=== PATIENT | female | born 1975 ===

== ENCOUNTER 2022-04-16 15:51 | Outpatient (REF) | payer OTHER, MEDICAID, SELFPAY ==
--- NOTE | ~2022-04-16 | XR_ITS ---
EXAMINATION: XR HAND, RIGHT CLINICAL INFORMATION: Pain status-post fall 3 weeks prior. COMPARISON: None TECHNIQUE: PA, lateral, and oblique views of the right hand. FINDINGS: The bones and soft tissues are normal. No fracture. Alignment is anatomic. Joint spaces are maintained. A minimal periarticular calcifications seen adjacent to the interphalangeal joint of the thumb. No erosions or soft tissue calcifications. XR/XR hand RT min 3V IMPRESSION: Unremarkable right hand.
== END 2022-04-16 15:52 | disposition home or self-care (01) ==
LOC: HO.XRAY 15:51
PROVIDERS: PCP Family Medicine; Visit Provider Family Medicine
DX: M79.641 Pain in right hand (principal)
CPT/HCPCS: 73130

== ENCOUNTER 2022-10-28 09:46 | Outpatient (AMB) | payer OTHER, MEDICAID, SELFPAY ==
--- NOTE | 2022-10-28 09:57 | A.OFFPC_ITS ---
Vital Signs 10/28/22 09:59 Height 5 ft 5.5 in Weight 157 lb 4 oz BMI 25.8 BP 110/74 Blood Pressure Location Rt brachial Position Sitting Respiration 12 Pulse 66 Pulse Source Pulse Oximeter Temp 97.9 F Temp Source Temporal Artery Scan Pulse Oximetry (%) 99 Oxygen Delivery Method Room Air Intake Visit Reasons: f/u anxiety/depression Intake Note: Patient states that she need refills on her inhalers, Clonopin, Bupropion, Tizanidine, Pantoprazole, Nasal [place]. Patient did not bring in Pill bottles for Pill count. Patient states she will be able to leave a urine. Python Developer Required: No Accompanied by: Self / Same As Patient Allergies escitalopram Allergy (Unknown, Verified 10/28/22 10:45) Unknown latex [LATEX] Allergy (Unknown, Verified 10/28/22 10:45) RASH, THROAT SWELLING prednisone [PREDNISONE] Allergy (Unknown, Verified 10/28/22 10:45) RASH, THROAT SWELLING latex Allergy (Unknown, Uncoded 10/28/22 10:45) rash Latex Gloves Allergy (Unknown, Uncoded 10/28/22 10:45) Unknown Paroxetine HCl Allergy (Unknown, Uncoded 10/28/22 10:45) unknown prednisone Allergy (Unknown, Uncoded 10/28/22 10:45) rash Medication List - Last Reconciled 10/28/22 by Rebeca Brooks CNP albuterol sulfate 90 mcg/actuation (Ventolin HFA) 2 puffs inhalation Q4-6H PRN albuterol sulfate 90 mcg/actuation 2 inhalations inhalation Q4-6H PRN 1 month aripiprazole 4 mg PO BEDTIME bupropion HCl 75 mg PO BID 30 days cetirizine 10 mg PO DAILY PRN 90 days clonazepam 1 mg PO BID PRN 15 days fluticasone propionate 50 mcg/actuation 1 spray intranasal DAILY fluticasone propionate 220 mcg/actuation (Flovent HFA) 1 puff inhalation BID 30 days ibuprofen 800 mg PO TID PRN levocetirizine (Xyzal) 5 mg PO DAILY 30 days melatonin 5 mg PO BEDTIME PRN pantoprazole 40 mg PO DAILY tizanidine 4 mg PO TID PRN Tobacco use date assessed: 04/01/22 Dental Screening Dental Screen Date: 10/28/22 Did you have a dental visit in the last 12 months?: No Did you have a dental problem in the last 6 months where you did not have access to dental care?: No Was dental information given to patient?: Yes HPI HPI Comments History of Present Illness Details 47-year-old female presents for anxiety and depression follow-up. She is on Abilify, clonazepam, and bupropion. She admits to taking her medications as prescribed. She is due for clonazepam pill count and urine drug screen. However, she notes she did not bring clonazepam tablets for his appointment. Patient abruptly left the room after she was asked to bring clonazepam pill container for pill count today or tomorrow per his PCP. She notes, I will just leave. There is nothing you can do for me. She notes to inform her PCP that she will transferred to the [place] practice. [facility], [facility] Medical History (Updated 10/28/22 @ 10:14 by Martha Valencia MA) No pertinent past medical history Surgical History (Updated 10/28/22 @ 10:14 by Martha Valencia MA) No pertinent past surgical history Family History Father Substance abuse Cancer Other Mental health disorder Social History Housing: Apartment Patient Tobacco Use Status: Current someday Tobacco user Cigarettes Per Day: 3 e-Cigarette/Vaping Use: Never Used service: No Current occupational status: disabled Current occupational exposures/hazards: No Cognitive needs: No Hearing needs: No Vision needs: Yes Questionnaire PHQ-9 Over the last 2 weeks, how often have you been bothered by any of the following problems? 1. Little interest or pleasure in doing things: more than half the days 2. Feeling down, depressed, or hopeless: nearly every day 3. Trouble falling or staying asleep, or sleeping too much: nearly every day 4. Feeling tired or having little energy: more than half the days 5. Poor appetite or overeating: more than half the days 6. Feeling bad about yourself - or that you are a failure or have let yourself or your family down: not at all 7. Trouble concentrating on things, such as reading the newspaper or watching television: nearly every day 8. Moving or speaking so slowly that other people could have noticed. Or the opposite - being so fidgety or restless that you have been moving around a lot more than usual: more than half the days 9. Thoughts that you would be better off or of hurting yourself in some way: not at all Total score: 17 Depression Screening Interpretation: Positive Depression Screening Follow-up: Existing condition and In treatment 35822 - PHQ-9 Billing: Yes Source: Developed by Drs. Edwin Montez, Jonatan Her and colleagues, with an educational harley from [employer]. HERRERA-7 AMB Questionnaire HERRERA-7 Date HERRERA - 7 assessed: 10/28/22 Feeling nervous, anxious, or on edge: 3 = Nearly every day Not being able to stop or control worryin = Nearly every day Worrying too much about different things: 3 = Nearly every day Trouble relaxin = Nearly every day Being so restless that it is hard to sit still: 3 = Nearly every day Becoming easily annoyed or irritable: 2 = More than half the days Feeling afraid as if something awful might happen: 2 = More than half the days Total HERRERA-7 score (0-4 normal; 5-9 mild; 10-14 moderate; 15-21 severe): 19 Source: Developed by Drs. Edwin Montez, Sapna Saucedo, Jonatan Aparicio and colleagues, with an educational harley from [employer]. HERRERA-7 Assessment Billing HERRERA-7 Assessment Tool: HERRERA-7 Assessment 65981 Review of Systems Const Details: Declines review of systems Physical exam (Primary Care) Vital Signs: Last Vital Signs Temp 97.9 F 10/28/22 09:59 Pulse 66 10/28/22 09:59 Resp 12 10/28/22 09:59 BP 110/74 10/28/22 09:59 Pulse Ox 99 10/28/22 09:59 Oxygen Delivery Method Room Air 10/28/22 09:59 BMI result Body Mass Index 25.8 Tobacco/Smoking Status: Tobacco use Status Tobacco use date assessed 04/01/22 10/28/22 10:16 Patient Tobacco Use Status Current someday Tobacco 10/28/22 10:16 e-Cigarette/Vaping Use Never Used 10/28/22 10:16 PHQ-9: PHQ-9 Score PHQ-9: Total score 17 10/28/22 10:17 Depression Screening Interpretation: Positive Depression Screening Follow-up: Existing condition and In treatment Const Other: Declines physical exam Assessment and Plan Assessment & Plan (1) Depression with anxiety: Code(s): F41.8 - Other specified anxiety disorders Plan: Patient left without been examined She refused to bring her clonazepam pill container for pill counts Her PCP informed that the patient notes she will transfer care to the [facility] Bupropion, Tizanidine, Pantoprazole, nasal spray refilled Orders: Orders AMB 14 Panel Urine Drug Screen Today Z51.81 - Encounter for therapeutic drug level monitoring Medications: Changed From aripiprazole 4 mg (2 x 2 mg) PO BEDTIME 30 days 60 tabs 0RF To aripiprazole 4 mg PO BEDTIME Refilled bupropion HCl 75 mg PO BID 60 tabs 2RF 30 days fluticasone propionate 50 mcg/actuation 1 spray intranasal DAILY 48 grams 0RF pantoprazole 40 mg PO DAILY 90 tabs 3RF tizanidine 4 mg PO TID PRN 270 tabs 0RF for muscle spasm Coding Level of Care Code Est Pt Level 2 (95833) Diagnoses Depression with anxiety F41.8 Additional Codes HERRERA-7 Assessment Billing - HERRERA-7 Assessment Tool: HERRERA-7 Assessment 53218 ([id number])
[2022-10-28 09:59] VITALS: BP 110/74; PULSE 66; RESP 12; TEMP 36.6; O2SAT 99; BMI 25.8
== END 2022-10-28 10:58 | disposition home or self-care (01) ==
PROVIDERS: PCP Family Medicine; Visit Provider Nurse Practitioner Family
DX: F41.8 Other specified anxiety disorders (principal)
CPT/HCPCS: 99212

== ENCOUNTER 2022-11-03 09:03 | Outpatient (AMB) | payer OTHER, MEDICAID, SELFPAY ==
--- NOTE | 2022-11-03 09:08 | MHC.PC.OV ---
Vital Signs 11/03/22 09:09 Height 5 ft 5.5 in Weight 161 lb 6 oz BMI 26.4 BP 112/70 Blood Pressure Location Lt brachial Position Sitting Pulse 61 Pulse Source Pulse Oximeter Pulse Oximetry (%) 99 Oxygen Delivery Method Room Air Intake Visit Reasons: Med f/u Intake Note: Patient is here for medication follow up. Allergies escitalopram Allergy (Unknown, Verified 11/03/22 09:10) Unknown latex [LATEX] Allergy (Unknown, Verified 11/03/22 09:10) RASH, THROAT SWELLING prednisone [PREDNISONE] Allergy (Unknown, Verified 11/03/22 09:10) RASH, THROAT SWELLING latex Allergy (Unknown, Uncoded 11/03/22 09:10) rash Latex Gloves Allergy (Unknown, Uncoded 11/03/22 09:10) Unknown Paroxetine HCl Allergy (Unknown, Uncoded 11/03/22 09:10) unknown prednisone Allergy (Unknown, Uncoded 11/03/22 09:10) rash Medication List - Last Reconciled 11/03/22 by Vivek Brandon MD albuterol sulfate 90 mcg/actuation (Ventolin HFA) 2 puffs inhalation Q4-6H PRN albuterol sulfate 90 mcg/actuation 2 inhalations inhalation Q4-6H PRN 1 month aripiprazole 4 mg PO BEDTIME bupropion HCl 75 mg PO BID 30 days cetirizine 10 mg PO DAILY PRN 90 days clonazepam 1 mg PO BID PRN 15 days fluticasone propionate 50 mcg/actuation 1 spray intranasal DAILY fluticasone propionate 220 mcg/actuation (Flovent HFA) 1 puff inhalation BID 30 days ibuprofen 800 mg PO TID PRN levocetirizine (Xyzal) 5 mg PO DAILY 30 days melatonin 5 mg PO BEDTIME PRN pantoprazole 40 mg PO DAILY tizanidine 4 mg PO TID PRN Tobacco use date assessed: 04/01/22 HPI Med f/u HPI Details 47 y/o female presents to f/u meds. Had increased her Abilify and had been taking less bupropion. She is also on clonazepam. She reports last time she had clonazepam was about 4 days ago. She is still on bupropion and Abilify. She notes she would like to increase her Abilify. [facility] Medical History No pertinent past medical history Surgical History No pertinent past surgical history Family History Father Substance abuse Cancer Other Mental health disorder Social History Housing: Apartment Patient Tobacco Use Status: Current someday Tobacco user Cigarettes Per Day: 3 e-Cigarette/Vaping Use: Never Used service: No Current occupational status: disabled Current occupational exposures/hazards: No Cognitive needs: No Hearing needs: No Vision needs: Yes Questionnaire PHQ-9 Over the last 2 weeks, how often have you been bothered by any of the following problems? 1. Little interest or pleasure in doing things: nearly every day 2. Feeling down, depressed, or hopeless: nearly every day 3. Trouble falling or staying asleep, or sleeping too much: nearly every day 4. Feeling tired or having little energy: nearly every day 5. Poor appetite or overeating: nearly every day 6. Feeling bad about yourself - or that you are a failure or have let yourself or your family down: nearly every day 7. Trouble concentrating on things, such as reading the newspaper or watching television: nearly every day 8. Moving or speaking so slowly that other people could have noticed. Or the opposite - being so fidgety or restless that you have been moving around a lot more than usual: nearly every day 9. Thoughts that you would be better off or of hurting yourself in some way: nearly every day Total score: 27 Source: Developed by Drs. Edwin Montez, Sapna Saucedo, Jonatan Aparicio and colleagues, with an educational harley from [employer]. HERRERA-7 AMB Questionnaire HERRERA-7 Date HERRERA - 7 assessed: 10/28/22 Feeling nervous, anxious, or on edge: 3 = Nearly every day Not being able to stop or control worryin = Nearly every day Worrying too much about different things: 3 = Nearly every day Trouble relaxin = Nearly every day Being so restless that it is hard to sit still: 3 = Nearly every day Becoming easily annoyed or irritable: 3 = Nearly every day Feeling afraid as if something awful might happen: 3 = Nearly every day Total HERRERA-7 score (0-4 normal; 5-9 mild; 10-14 moderate; 15-21 severe): 21 Source: Developed by Drs. Edwin Montez, Sapna Saucedo, Jonatan Aparicio and colleagues, with an educational harley from [employer]. Review of Systems Const Denies chills, Denies fatigue, Denies fever(s), Denies headache(s) and Denies weakness ENT Denies dizziness and Denies headache(s) Card Denies dyspnea Resp Denies cough, Denies dyspnea, Denies wheezing and Denies other (shortness of breath) Musc Denies numbness and Denies tingling Neuro Denies dizziness, Denies headache(s), Denies numbness, Denies tingling and Denies weakness Psych Reports anxiety and Reports depression Endo Denies fatigue Aller/Immun Denies wheezing Physical exam (Primary Care) Vital Signs: Last Vital Signs Pulse 61 11/03/22 09:09 BP 112/70 11/03/22 09:09 Pulse Ox 99 11/03/22 09:09 Oxygen Delivery Method Room Air 11/03/22 09:09 BMI result Body Mass Index 26.4 Tobacco/Smoking Status: Tobacco use Status Tobacco use date assessed 04/01/22 11/03/22 09:10 Patient Tobacco Use Status Current someday Tobacco 11/03/22 09:10 e-Cigarette/Vaping Use Never Used 11/03/22 09:10 PHQ-9: PHQ-9 Score PHQ-9: Total score 27 11/03/22 09:38 Const General: well developed; No acute distress Nutritional Appearance: well nourished Orientation/consciousness: patient oriented x3 HENMT Head: Yes normocephalic and Yes atraumatic Eyes General: appearance normal, both eyes and all related structures Pupils: Equal, round and reactive pupils present EOM: EOMs intact bilaterally Resp Effort & Inspection: normal respiratory effort Neuro General: patient oriented x3 and gait normal Cranial nerves: Yes Equal, round and reactive pupils present Psych Affect: normal affect Assessment and Plan Assessment & Plan (1) Depression with anxiety: Code(s): F41.8 - Other specified anxiety disorders Plan: Ongoing severe anxiety and depression. She was seen by MT at last visit and was not prepared for visit with her bottle for a pill count. We discussed that I want her to bring her bottle to each visit from now on so she will not have to remember when she should bring and when she does not need to. We will have her come back for a shorter interval visit in 2 weeks. Will check a pill count at that time. Will get a urine drug screen today and repeat at her next visit. She notes that her last dose of medication was about 3 days ago so urine drug screen and may not show anything this time but she assures me that it wound have any other substances either. She requests an increase in Abilify so we will bring this from 4 mg q.h.s. to 6 mg q.h.s.. Continue bupropion Orders: Orders Drug Screen Urine Today F41.8 - Other specified anxiety disorders Medications: Changed From aripiprazole 4 mg PO BEDTIME To aripiprazole 6 mg (3 x 2 mg) PO BEDTIME 90 tabs 0RF 30 days Refilled clonazepam [employer] verified. Partial refill upon request. 1 mg PO BID PRN 30 tabs 0RF anxiety 15 days F41.8 - Other specified anxiety disorders Coding Level of Care Code Est Pt Level 3 (32790) Diagnoses Depression with anxiety F41.8
[2022-11-03 09:09] VITALS: BP 112/70; PULSE 61; O2SAT 99; BMI 26.4
== END 2022-11-03 09:38 | disposition home or self-care (01) ==
PROVIDERS: PCP Family Medicine; Visit Provider Nurse Practitioner Family
DX: F41.8 Other specified anxiety disorders (principal)
CPT/HCPCS: 99213

== ENCOUNTER 2022-11-03 09:35 | Outpatient (REF) | payer OTHER, MEDICAID, SELFPAY ==
[2022-11-03 12:52] LABS: Amphetamine Screen Urine Not Detected (Not Detect); Barbiturates, Urine Not Detected (Not Detect); Benzodiazepines Screen Urine Not Detected (Not Detect); Cannabinoid Screen Urine POSITIVE (Not Detect); Cocaine Screen Urine Not Detected (Not Detect); Fentanyl, urine Not Detected (Not Detect); Opiate Screen Urine Not Detected (Not Detect); Phencyclidine Screen Urine Not Detected (Not Detect)
== END 2022-11-03 09:36 | disposition home or self-care (01) ==
LOC: HO.LAB 09:35
PROVIDERS: Visit Provider Family Medicine
DX: F41.8 Other specified anxiety disorders (principal)
CPT/HCPCS: 80307

== ENCOUNTER 2022-12-28 08:59 | Outpatient (AMB) | payer OTHER, MEDICAID, SELFPAY ==
--- NOTE | 2022-12-28 09:06 | A.OFFPC_ITS ---
Vital Signs 12/28/22 09:07 Height 5 ft 5.5 in Weight 166 lb BMI 27.2 BP 106/68 Blood Pressure Location Lt brachial Position Sitting Respiration 13 Pulse 63 Pulse Source Pulse Oximeter Temp 98.9 F Temp Source Oral Pulse Oximetry (%) 99 Oxygen Delivery Method Room Air Intake Visit Reasons: f/u depression/anxiety Intake Note: Patient is here for depression and anxiety follow up. Patient reports she has no concerns at this time. Pediatric Dental Assistant Required: No Accompanied by: Self / Same As Patient Allergies escitalopram Allergy (Unknown, Verified 12/28/22 09:24) Unknown latex [LATEX] Allergy (Unknown, Verified 12/28/22 09:24) RASH, THROAT SWELLING prednisone [PREDNISONE] Allergy (Unknown, Verified 12/28/22:24) RASH, THROAT SWELLING latex Allergy (Unknown, Uncoded 12/28/22 09:24) rash Latex Gloves Allergy (Unknown, Uncoded 12/28/22 09:24) Unknown Paroxetine HCl Allergy (Unknown, Uncoded 12/28/22 09:24) unknown prednisone Allergy (Unknown, Uncoded 12/28/22 09:24) rash Medication List - Last Reconciled 12/28/22 by Rebeca Brooks CNP albuterol sulfate 90 mcg/actuation (Ventolin HFA) 2 puffs inhalation Q4-6H PRN albuterol sulfate 90 mcg/actuation 2 inhalations inhalation Q4-6H PRN 1 month aripiprazole 6 mg (3 x 2 mg) PO BEDTIME 30 days bupropion HCl 75 mg PO BID 30 days cetirizine 10 mg PO DAILY PRN 90 days clonazepam 1 mg PO BID PRN 15 days fluticasone propionate 50 mcg/actuation 1 spray intranasal DAILY fluticasone propionate 220 mcg/actuation (Flovent HFA) 1 puff inhalation BID 30 days ibuprofen 800 mg PO TID PRN levocetirizine (Xyzal) 5 mg PO DAILY 30 days melatonin 5 mg PO BEDTIME PRN pantoprazole 40 mg PO DAILY tizanidine 4 mg PO TID PRN Tobacco use date assessed: 04/01/22 HPI HPI Comments History of Present Illness Details 47-year-old female presents for anxiety and depression follow-up. She is on Abilify, clonazepam, and bupropion. She admits to taking her medications as prescribed. She states she took the last dose of clonazepam last night. She was last seen by her PCP in October and was advised to follow-up in 2 weeks. Abilify was increased to 6 mg every night. She reports increased anxiety and depression symptoms. She notes that I've been down lately. She denies SI/HI and contracts for safety. She notes that she is on a wait list for a psychiatrist. She brought an empty clonazepam medication bottle. [facility] Medical History No pertinent past medical history Surgical History No pertinent past surgical history Family History Father Substance abuse Cancer Other Mental health disorder Social History Housing: Apartment Patient Tobacco Use Status: Current someday Tobacco user Cigarettes Per Day: 3 e-Cigarette/Vaping Use: Never Used service: No Current occupational status: disabled Current occupational exposures/hazards: No Cognitive needs: No Hearing needs: No Vision needs: Yes Questionnaire PHQ-9 Over the last 2 weeks, how often have you been bothered by any of the following problems? 1. Little interest or pleasure in doing things: nearly every day 2. Feeling down, depressed, or hopeless: nearly every day 3. Trouble falling or staying asleep, or sleeping too much: nearly every day 4. Feeling tired or having little energy: nearly every day 5. Poor appetite or overeating: nearly every day 6. Feeling bad about yourself - or that you are a failure or have let yourself or your family down: nearly every day 7. Trouble concentrating on things, such as reading the newspaper or watching television: nearly every day 8. Moving or speaking so slowly that other people could have noticed. Or the opposite - being so fidgety or restless that you have been moving around a lot more than usual: nearly every day 9. Thoughts that you would be better off or of hurting yourself in some way: not at all Total score: 24 Depression Screening Interpretation: Positive Depression Screening Follow-up: Existing condition, In treatment and Community Mental Health Worker F/U Depression Screening Done: Yes 09446 - PHQ-9 Billing: Yes Source: Developed by Drs. Edwin Montez, Jonatan eHr and colleagues, with an educational harley from [employer]. HERRERA-7 AMB Questionnaire HERRERA-7 Date HERRERA - 7 assessed: 12/28/22 Feeling nervous, anxious, or on edge: 3 = Nearly every day Not being able to stop or control worryin = Nearly every day Worrying too much about different things: 3 = Nearly every day Trouble relaxin = Nearly every day Being so restless that it is hard to sit still: 3 = Nearly every day Becoming easily annoyed or irritable: 3 = Nearly every day Feeling afraid as if something awful might happen: 3 = Nearly every day Total HERRERA-7 score (0-4 normal; 5-9 mild; 10-14 moderate; 15-21 severe): 21 Source: Developed by Drs. Edwin Montez, Jonatan Her and colleagues, with an educational harley from [employer]. HERRERA-7 Assessment Billing HERRERA-7 Assessment Tool: HERRERA-7 Assessment 34682 Review of Systems Const Details: Const Denies chills, Denies fatigue, Denies fever(s), Denies headache(s) and Denies weakness ENT Denies dizziness and Denies headache(s) Card Denies chest pain, Denies lightheadedness, Denies dyspnea and Denies other (Palpitations) Resp Denies cough, Denies dyspnea, Denies wheezing and Denies other ( shortness of breath) GI Denies abdominal pain, Denies melena, Denies hematochezia, Denies change in bowel habits, Denies dyspepsia and Denies nausea Denies hematuria and Denies dysuria Musc Denies abnormal gait, Denies myalgias, Denies arthralgias, Denies numbness and Denies tingling Skin/Breast Denies rash, Denies unusual bruising and Denies wounds Neuro Denies abnormal gait, Denies dizziness, Denies headache(s), Denies memory loss, Denies numbness, Denies Sensory deficit (Neuro), Denies tingling and Denies weakness Psych Reports anxiety, Reports depression, Denies memory loss Endo Denies cold intolerance, Denies fatigue, Denies heat intolerance, Denies polydipsia and Denies polyuria Aller/Immun Denies wheezing Physical exam (Primary Care) Vital Signs: Last Vital Signs Temp 98.9 F 12/28/22 09:07 Pulse 63 12/28/22 09:07 Resp 13 12/28/22 09:07 BP 106/68 12/28/22 09:07 Pulse Ox 99 12/28/22 09:07 Oxygen Delivery Method Room Air 12/28/22 09:07 BMI result Body Mass Index 27.2 Tobacco/Smoking Status: Tobacco use Status Tobacco use date assessed 04/01/22 12/28/22 09:12 Patient Tobacco Use Status Current someday Tobacco 12/28/22 09:12 e-Cigarette/Vaping Use Never Used 12/28/22 09:12 PHQ-9: PHQ-9 Score PHQ-9: Total score 24 12/28/22 09:43 Depression Screening Interpretation: Positive Depression Screening Follow-up: Existing condition, In treatment and Community Mental Health Worker F/U Const Other: General: no acute distress and well developed Nutritional Appearance: well nourished Orientation/consciousness: patient oriented x3 HENMT Head: Yes normocephalic and Yes atraumatic Eyes General: appearance normal, both eyes and all related structures Pupils: Equal, round and reactive pupils present EOM: EOMs intact bilaterally Resp Effort & Inspection: normal respiratory effort Auscultation: clear to auscultation bilaterally Cardio Rate: regular rate Rhythm: regular rhythm Heart sounds: S1 normal heart sound present, S2 normal heart sound present, no gallops, no murmurs and no rubs GI Palpation (GI): No Abdominal aortic bruit present, Soft to palpation, nontender, No hepatosplenomegaly present and No Rebound tenderness present Auscultation: normal bowel sounds General: Yes no CVA tenderness Back/Spine/Pelvis Back: no CVA tenderness Cervical Spine: cervical ROM normal and No Cervical spine tenderness Thoracic/Lumbar Spine: thoraco-lumbar ROM normal, No pain with thoraco-lumbar ROM, No thoracic spinal tenderness and No lumbar spinal tenderness Extrem General: Yes normal to inspection, No edema and No calf tenderness Skin General: warm and dry. Normal skin color. Normal skin turgor Lesions: no lesions Rashes: no rashes Trauma: no lacerations or abrasions Wounds: no wounds Nails: normal Neuro General: patient oriented x3, gait normal and no focal neuro deficit Cranial nerves: Yes Equal, round and reactive pupils present Cognition (Neuro): normal cognition Gait exam (Neuro): Normal gait present Sensory Exam: No Sensory deficit (Neuro) Psych Appearance: grossly normal Affect: normal affect Attitude: cooperative Thought process: Normal thought process present Assessment and Plan Assessment & Plan (1) Depression with anxiety: Code(s): F41.8 - Other specified anxiety disorders Plan: She reports increased anxiety and depression symptoms PHQ-9 and HERRERA-7 scores revealed severe depression and anxiety Continue with current treatment regimen Clonazepam refilled x 3 days Urine drug screen ordered. Will review results and extend clonazepam prescription as appropriate Routine exercise encouraged She met with the community navigator who will refer her to a new psychiatrist Follow-up with PCP in 1 month or return sooner with worsening or new symptoms Verbalized understanding and agreed with treatment plan. Case reviewed with the patient's PCP, Dr. Brandon who will follow-up with the patient once her urine drug and benzo screen his resulted. Orders: Orders AMB 12 Panel Urine Drug Screen Today Z51.81 - Encounter for therapeutic drug level monitoring Benzodiazepine,GC/MS Urine Today F41.8 - Other specified anxiety disorders Medications: Changed From clonazepam [facility] verified. Partial refill upon request. 1 mg PO BID 15 days PRN 30 tabs 0RF anxiety F41.8 - Other specified anxiety disorders To clonazepam [facility] verified. Partial refill upon request. 1 mg PO BID 3 days PRN 6 tabs 0RF anxiety F41.8 - Other specified anxiety disorders Coding Level of Care Code Est Pt Level 4 (17035) Diagnoses Depression with anxiety F41.8 Additional Codes HERRERA-7 Assessment Billing - HERRERA-7 Assessment Tool: HERRERA-7 Assessment 05932 ([id number])
[2022-12-28 09:07] VITALS: BP 106/68; PULSE 63; RESP 13; TEMP 37.2; O2SAT 99; BMI 27.2
== END 2022-12-28 10:09 | disposition home or self-care (01) ==
PROVIDERS: PCP Family Medicine; Visit Provider Nurse Practitioner Family
DX: F41.8 Other specified anxiety disorders (principal)
CPT/HCPCS: 96127; 99214

== ENCOUNTER 2022-12-28 09:25 | Outpatient (REF) | payer OTHER, MEDICAID, SELFPAY ==
[2022-12-28 11:36] LABS: Amphetamine Screen Urine Not Detected (Not Detect); Barbiturates, Urine Not Detected (Not Detect); Benzodiazepines Screen Urine Not Detected (Not Detect); Cannabinoid Screen Urine POSITIVE (Not Detect); Cocaine Screen Urine Not Detected (Not Detect); Fentanyl, urine Not Detected (Not Detect); Opiate Screen Urine Not Detected (Not Detect); Phencyclidine Screen Urine Not Detected (Not Detect)
[2023-01-04 09:02] LABS: Alphahydroxymidazolam,GCMS Ur NEGATIVE; Alphahydroxytriazolam, GCMS Ur NEGATIVE; Alprazolam, GCMS Urine NEGATIVE; Flurazepam Metabolite,GCMS Ur NEGATIVE; Lorazepam GCMS Urine NEGATIVE; Nordiazepam, GCMS Urine NEGATIVE; Oxazepam, GCMS Urine NEGATIVE; Temazepam, GCMS Urine NEGATIVE
== END 2022-12-28 09:26 | disposition home or self-care (01) ==
LOC: HO.LAB 09:25
PROVIDERS: Visit Provider Nurse Practitioner Family
DX: F41.8 Other specified anxiety disorders (principal); Z79.899 Other long term (current) drug therapy
CPT/HCPCS: 80307; 80346

== ENCOUNTER 2023-02-09 09:18 | Outpatient (AMB) | payer OTHER, MEDICAID, SELFPAY ==
[2023-02-09 09:23] VITALS: BP 118/64; PULSE 71; O2SAT 97; BMI 27.0
--- NOTE | 2023-02-09 09:23 | A.OFFPC_ITS ---
Vital Signs 02/09/23 09:23 Height 5 ft 5.5 in Weight 165 lb 1 oz BMI 27.0 BP 118/64 Blood Pressure Location Lt brachial Position Sitting Pulse 71 Pulse Source Pulse Oximeter Pulse Oximetry (%) 97 Oxygen Delivery Method Room Air Intake Visit Reasons: 1 mos anxiety, depession Intake Note: Patient is here to follow up on anxiety and depression today, and both ears feels blocked. Allergies escitalopram Allergy (Unknown, Verified 02/09/23 09:25) Unknown latex [LATEX] Allergy (Unknown, Verified 02/09/23 09:25) RASH, THROAT SWELLING prednisone [PREDNISONE] Allergy (Unknown, Verified 02/09/23 09:25) RASH, THROAT SWELLING latex Allergy (Unknown, Uncoded 02/09/23 09:25) rash Latex Gloves Allergy (Unknown, Uncoded 02/09/23 09:25) Unknown Paroxetine HCl Allergy (Unknown, Uncoded 02/09/23 09:25) unknown prednisone Allergy (Unknown, Uncoded 02/09/23 09:25) rash Tobacco use date assessed: 02/09/23 HPI 1 mos anxiety, depession HPI Details 47 y/o female presents to f/u anxiety/de pression. Pt also reports both ears feel blocked. She reports she had been using Flonase and cetirizine and needs a refill on these. [facility] Medical History No pertinent past medical history Surgical History No pertinent past surgical history Family History Father Substance abuse Cancer Other Mental health disorder Social History Housing: Apartment Patient Tobacco Use Status: Current someday Tobacco user Cigarettes Per Day: 3 e-Cigarette/Vaping Use: Never Used service: No Current occupational status: disabled Current occupational exposures/hazards: No Cognitive needs: No Hearing needs: No Vision needs: Yes Questionnaire PHQ-9 Over the last 2 weeks, how often have you been bothered by any of the following problems? 1. Little interest or pleasure in doing things: nearly every day 2. Feeling down, depressed, or hopeless: nearly every day 3. Trouble falling or staying asleep, or sleeping too much: nearly every day 4. Feeling tired or having little energy: nearly every day 5. Poor appetite or overeating: nearly every day 6. Feeling bad about yourself - or that you are a failure or have let yourself or your family down: not at all 7. Trouble concentrating on things, such as reading the newspaper or watching television: nearly every day 8. Moving or speaking so slowly that other people could have noticed. Or the opposite - being so fidgety or restless that you have been moving around a lot more than usual: nearly every day 9. Thoughts that you would be better off or of hurting yourself in some way: not at all Total score: 21 Depression Screening Interpretation: Positive Depression Screening Done: Yes Source: Developed by Drs. Edwin Montez, Sapna Saucedo, Jonatan Aparicio and colleagues, with an educational harley from [employer]. HERRERA-7 AMB Questionnaire HERRERA-7 Date HERRERA - 7 assessed: 02/09/23 Feeling nervous, anxious, or on edge: 3 = Nearly every day Not being able to stop or control worryin = Nearly every day Worrying too much about different things: 3 = Nearly every day Trouble relaxin = Nearly every day Being so restless that it is hard to sit still: 3 = Nearly every day Becoming easily annoyed or irritable: 0 = Not at all Feeling afraid as if something awful might happen: 1 = Several days Total HERRERA-7 score (0-4 normal; 5-9 mild; 10-14 moderate; 15-21 severe): 16 Source: Developed by Drs. Edwin Montez, Sapna Saucedo, Jonatan Aparicio and colleagues, with an educational harley from [employer]. Review of Systems Psych Reports anxiety and Reports depression Physical exam (Primary Care) Vital Signs: Last Vital Signs Pulse 71 02/09/23 09:23 BP 118/64 02/09/23 09:23 Pulse Ox 97 02/09/23 09:23 Oxygen Delivery Method Room Air 02/09/23 09:23 BMI result Body Mass Index 27.0 Tobacco/Smoking Status: Tobacco use Status Tobacco use date assessed 02/09/23 02/09/23 09:35 Patient Tobacco Use Status Current someday Tobacco 02/09/23 09:35 e-Cigarette/Vaping Use Never Used 02/09/23 09:35 PHQ-9: PHQ-9 Score PHQ-9: Total score 21 02/09/23 09:35 Depression Screening Interpretation: Positive Assessment and Plan Assessment & Plan (1) Depression with anxiety: Code(s): F41.8 - Other specified anxiety disorders Plan: Controlled?on?current?medication?regimen. Most?recent?urine?drug?screen?was?appropriate Continue?current?medication?regimen She?will?return?in?3-4?months?for?her?CPE?and?we?can?follow-up?on?anxiety? and?depression?at?that?time. (2) Ear discomfort: Code(s): H92.09 - Otalgia, unspecified ear Plan: She?has?mild uninfected?effusions?behind?each?TM?and?significant?nasal?congestion Refilled?Flonase?and?cetirizine. Encouraged?patient?to?stop?using?perfume?while?she?has?these?symptoms Orders: Orders Lipid Panel Today Z00.00 - Encounter for general adult medical examination without abnormal findings UA and rflx microscopic Today Z00.00 - Encounter for general adult medical examination without abnormal findings Comprehensive [place]. Panel Fast Today Z00.00 - Encounter for general adult medical examination without abnormal findings Complete Blood Count Auto Diff Today Z00.00 - Encounter for general adult medical examination without abnormal findings Microalbumin, Random (w Creat) Today I10 - Essential (primary) hypertension TSH reflex Free T4 Today Z00.00 - Encounter for general adult medical examination without abnormal findings Medications: Changed From fluticasone propionate 50 mcg/actuation 1 spray intranasal DAILY 48 grams 0RF To fluticasone propionate 50 mcg/actuation 1 spray intranasal DAILY 30 days 48 grams 4RF Refilled cetirizine 10 mg PO DAILY 90 days PRN 90 tabs 3RF for allergies Coding Level of Care Code Est Pt Level 3 (87310) Diagnoses Depression with anxiety F41.8 Ear discomfort H92.09
== END 2023-02-09 10:31 | disposition home or self-care (01) ==
PROVIDERS: PCP Family Medicine; Visit Provider Family Medicine
DX: F41.8 Other specified anxiety disorders (principal); H92.09 Otalgia, unspecified ear
CPT/HCPCS: 99213

== ENCOUNTER 2023-09-15 09:51 | Outpatient (AMB) | payer OTHER, MEDICAID, SELFPAY ==
--- NOTE | 2023-09-15 09:56 | A.OFFPC_ITS ---
Vital Signs 09/15/23 10:03 Height 5 ft 5.5 in Weight 172 lb BMI 28.2 BP 98/68 Blood Pressure Location Rt brachial Position Sitting Respiration 16 Pulse 97 Pulse Source Pulse Oximeter Temp 97.5 F Temp Source Oral Pulse Oximetry (%) 97 Oxygen Delivery Method Room Air Intake Visit Reasons: CPE Intake Note: patient here for CPE Load Tallier Required: No Is last menstrual period known: Yes Last menstrual period: 09/08/23 Post menopausal: No Patient : No Allergies escitalopram Allergy (Unknown, Verified 09/15/23 10:12) Unknown latex [LATEX] Allergy (Unknown, Verified 09/15/23 10:12) RASH, THROAT SWELLING prednisone [PREDNISONE] Allergy (Unknown, Verified 09/15/23 10:12) RASH, THROAT SWELLING latex Allergy (Unknown, Uncoded 02/09/23 09:25) rash Latex Gloves Allergy (Unknown, Uncoded 02/09/23 09:25) Unknown Paroxetine HCl Allergy (Unknown, Uncoded 02/09/23 09:25) unknown prednisone Allergy (Unknown, Uncoded 02/09/23 09:25) rash Medication List - Last Reconciled 09/15/23 by Zaria Farnsworth, TEXTILES AND CLOTHING TEACHER- albuterol sulfate 90 mcg/actuation (Ventolin HFA) 2 puffs inhalation Q4-6H PRN aripiprazole 6 mg (3 x 2 mg) PO BEDTIME 30 days cetirizine 10 mg PO DAILY PRN 90 days clonazepam 1 mg PO BID PRN 15 days fluticasone propionate 50 mcg/actuation 1 spray intranasal DAILY 30 days ibuprofen 800 mg PO TID PRN melatonin 5 mg PO BEDTIME PRN pantoprazole 40 mg PO DAILY tizanidine 4 mg PO TID PRN Tobacco use date assessed: 09/15/23 Dental Screening Dental Screen Date: 09/15/23 Did you have a dental visit in the last 12 months?: No Did you have a dental problem in the last 6 months where you did not have access to dental care?: No Was dental information given to patient?: No HPI HPI Comments History of Present Illness Details 48-year-old female with MDD, generalized anxiety disorder, current smoker, polysubstance abuse (marijuana, benzo, cocaine), asthma , GERD Specialists: none Health Maintenance: ? Colon has never had one, referral placed ? Mammo overdue ordered today ? DEXA NA still has menses ? PAP pverdue referred to [facility] today ? Tdap 10/13/2013, will update today Here today for physical exam; active pt of Dr Brandon. Stopped taking Apriprazole as this caused hunger and wt gain and insomnia asthma well controlled GERD well controlled Cont to smoke, trying to reduce toe nail fungus, tried home tx w/o relief. would like to see a counselor for her MDD and HERRERA chronic low back pain, using zanaflex, requests refill General: Well developed, well nourished, in no acute distress. Appears stated age. Head: Normocephalic, atraumatic. Eyes: Pupils are equal, round and reactive to light and accommodation. Conjunctivae are clear. Vision grossly normal. Ears: cerumen bilat EAC unable to see TM Nose: Patent, without discharge. Mouth: There are no ulcers or lesions noted. No inflammation, no post nasal drip, no plaques nor exudates. Neck: Supple, no adenopathy or thyromegaly. Lungs: Clear to auscultation bilaterally. No rales, rhonchi or wheeze noted. diminished in all dominguez. Heart: Regular rate and rhythm. No murmurs, click, rubs or gallops are noted. Abdomen: Bowel sounds present in all quadrants. The abdomen is soft, nontender, with no masses or organomegaly noted. No hernias are noted. Musculoskeletal: Joints are nontender, without swelling, redness, or effusions. Range of motion is observed to be normal. Pulses: Peripheral pulses are equal and palpable bilaterally. Extremities: No clubbing, cyanosis nor edema is noted. Neurologic: Gait and station normal. Cranial Nerves 2-12 intact. Motor strength grossly symmetrical and intact. No sensory loss. Balance normal. Skin: No rashes, ulcers, or lesions noted. Turgor is good. Skin color is good. onychomycosis bilat great toe nails . Psych: Normal eye contact, affect and mood appropriate, and normal interactions. Patient appears under the influence, nodding off occasionally, strong smell of marijuana, very pleasant and cooperative Plan smoking cessation, screening labs & health maintenance ordered tdap today refill melatonin, albuterol & zanaflex per request refer to [facility] for counseling; podiatry for nail fungus new RX for topical AF for toenails Debrox for cerumen, fu 1 week for lavage bilat [facility] Medical History (Updated 09/15/23 @ 11:28 by Zaria Farnsworth [facility]) Smoking Depression with anxiety Difficulty sleeping Right hand pain Ear discomfort No pertinent past medical history Surgical History No pertinent past surgical history Family History Father Substance abuse Cancer Other Mental health disorder Social History Housing: Apartment Patient Tobacco Use Status: Current someday Tobacco user Tobacco use type: Cigarette Cigarettes Per Day: 3 e-Cigarette/Vaping Use: Never Used service: No Current occupational status: disabled Current occupational exposures/hazards: No Cognitive needs: No Hearing needs: No Vision needs: Yes Female Reproductive History Menstrual Date of last menstrual period: 09/08/23 Questionnaire PHQ-9 Over the last 2 weeks, how often have you been bothered by any of the following problems? 1. Little interest or pleasure in doing things: nearly every day 2. Feeling down, depressed, or hopeless: nearly every day 3. Trouble falling or staying asleep, or sleeping too much: nearly every day 4. Feeling tired or having little energy: nearly every day 5. Poor appetite or overeating: nearly every day 6. Feeling bad about yourself - or that you are a failure or have let yourself or your family down: several days 7. Trouble concentrating on things, such as reading the newspaper or watching television: more than half the days 8. Moving or speaking so slowly that other people could have noticed. Or the opposite - being so fidgety or restless that you have been moving around a lot more than usual: more than half the days 9. Thoughts that you would be better off or of hurting yourself in some way: not at all Total score: 20 Depression Screening Interpretation: Positive Depression Screening Follow-up: Existing condition and Community Mental Health Worker F/U Depression Screening Done: Yes 50884 - PHQ-9 Billing: Yes Source: Developed by Drs. Edwin Montez, Sapna Saucedo, Jonatan Aparicio and colleagues, with an educational harley from [employer]. Thrive Questionnaire Date Thrive assessed: 09/15/23 I am a: Patient What is your living situation today?: I have a steady place to live Within the past 12 months, did the food you bought not last and you didn't have the money to get more?: Sometimes True Within the past 12 months, did you worry whether your food would run out before you got money to buy more?: Often true Do you have trouble paying for medicines?: No Do you have trouble getting transportation to medical appointments?: Yes Do you have trouble paying your heating and electricity bill?: No Do you have trouble taking care of your child, family member or friend?: No Do you have trouble with day-to-day activities such as bathing, preparing meals, shopping, managing finances, etc.?: No Are you currently unemployed and looking for a job?: No Are you interested in more education?: No Please select the resources that you would like help with: None Currently or been in a relationship where the following occur: No concerns repor krish THRIVE Score: 3 AUDIT C Alcohol Use Questionnaire (AUDIT-C) 1. How often do you have a drink containing alcohol?: Monthly or less (on occasion) 2. How many drinks containing alcohol do you have on a typical day when you are drinking?: 1 or 2 3. How often do you have six or more drinks on one occasion?: Never Total Score: 1 Score Reviewed/Action Taken: Yes HERRERA-7 AMB Questionnaire HERRERA-7 Date HERRERA - 7 assessed: 09/15/23 Feeling nervous, anxious, or on edge: 3 = Nearly every day Not being able to stop or control worryin = Nearly every day Worrying too much about different things: 3 = Nearly every day Trouble relaxin = Nearly every day Being so restless that it is hard to sit still: 3 = Nearly every day Becoming easily annoyed or irritable: 3 = Nearly every day Feeling afraid as if something awful might happen: 0 = Not at all Total HERRERA-7 score (0-4 normal; 5-9 mild; 10-14 moderate; 15-21 severe): 18 Source: Developed by Drs. Edwin Montez, Sapna Saucedo, Jonatan Aparicio and colleagues, with an educational harley from [employer]. HERRERA-7 Assessment Billing HERRERA-7 Assessment Tool: HERRERA-7 Assessment 95027 ACT Questionnaire In the past 4 weeks, how much of the time did your asthma keep you from getting as much done at work, school or at home?: All of the time During the past 4 weeks, how often have you had shortness of breath?: Once a day During the past 4 weeks, how often did your asthma symptoms wake you up at night or earlier than usual in the morning?: 4 or more nights a week During the past 4 weeks, how often have you had to use your rescue inhaler or nebulizer medication?: 2-3 times a week How would you rate your asthma control during the past 4 weeks?: Completely controlled ACT Interpretation: Positive ACT Branch: Refer to Community Navigation Score: 12 Physical exam (Primary Care) Vital Signs: Last Vital Signs Temp 97.5 F 09/15/23 10:03 Pulse 97 09/15/23 10:03 Resp 16 09/15/23 10:03 BP 98/68 09/15/23 10:03 Pulse Ox 97 09/15/23 10:03 Oxygen Delivery Method Room Air 09/15/23 10:03 BMI result Body Mass Index 28.2 BMI Assessment/Plan discussion: High BMI High, discussed plan: lifestyle Tobacco/Smoking Status: Tobacco use Status Tobacco use date assessed 09/15/23 09/15/23 10:03 Patient Tobacco Use Status Current someday Tobacco 09/15/23 09:58 Tobacco use type Cigarette 09/15/23 10:12 e-Cigarette/Vaping Use Never Used 09/15/23 09:58 Tobacco cessation counseling provided: Yes Items discussed: Other Relapse Prevention: discussed the importance of a supportive environment, discussed extending NRT, discussed negative mood or depression after quitting, weight gain after smoking is common and discussed dietary, exercise and/or lifestyle changes Number of minutes spent counselin CPT code: 94653 - 4-10 Minutes PHQ-9: PHQ-9 Score PHQ-9: Total score 20 09/15/23 11:11 Depression Screening Interpretation: Positive Depression Screening Follow-up: E xisting condition and Community Mental Health Worker F/U Thrive Assessment: Date of Thrive Assessment Date Thrive assessed 09/15/23 09/15/23 11:11 Currently or been in a relationship where the following occur: No concerns reported Immunizations Boostrix Tdap 2.5 Lf unit-8 mcg-5 Lf/0.5 mL intramuscular syringe Performing Provider: AMANDA Leger Performing Location: [facility] Administered by: Ramya Jaeger RN on 09/15/23 10:36 Dose Route Admin Location Dispensed Lot Number Expiration Date NDC Capsule Maker 0.5 mL IM Left Deltoid 0.5 mL [id number] 09/30/25 00468-147-07 [employer] VIS Given Date VIS Provided VIS Publication Date 09/15/23 Single Vaccine 20 Eligibility Eligibility Date Funding Source Not [facility] Eligible 09/15/23 Private Assessment and Plan Assessment & Plan (1) Encounter for general adult medical examination without abnormal findings: Code(s): Z00.00 - Encounter for general adult medical examination without abnormal findings (2) HERRERA (generalized anxiety disorder): Code(s): F41.1 - Generalized anxiety disorder (3) MDD (major depressive disorder), recurrent episode: Code(s): F33.9 - Major depressive disorder, recurrent, unspecified (4) Polysubstance abuse: Code(s): F19.10 - Other psychoactive substance abuse, uncomplicated (5) Tobacco dependence with current use: Code(s): F17.200 - Nicotine dependence, unspecified, uncomplicated (6) Cervical cancer screening: Code(s): Z12.4 - Encounter for screening for malignant neoplasm of cervix (7) Colon cancer screening: Code(s): Z12.11 - Encounter for screening for malignant neoplasm of colon (8) Onychomycosis: Code(s): B35.1 - Tinea unguium (9) Laboratory exam ordered as part of routine general medical examination: Code(s): Z00.00 - Encounter for general adult medical examination without abnormal findings (10) Mild intermittent asthma in adult without complication: Code(s): J45.20 - Mild intermittent asthma, uncomplicated (11) GERD without esophagitis: Code(s): K21.9 - Gastro-esophageal reflux disease without esophagitis (12) Low back pain: Code(s): M54.50 - Low back pain, unspecified (13) Impacted cerumen, bilateral: Code(s): H61.23 - Impacted cerumen, bilateral Orders: Orders LDL Cholesterol Direct Today Z00.00 - Encounter for general adult medical examination without abnormal findings Hemoglobin A1c Today Z00.00 - Encounter for general adult medical examination without abnormal findings MM tomosynthesis screening BI Today Z12.31 - Encounter for screening mammogram for malignant neoplasm of breast TSH reflex Free T4 Today Z00.00 - Encounter for general adult medical examination without abnormal findings Comprehensive Met. Panel Today Z00.00 - Encounter for general adult medical examination without abnormal findings TDaP Immunization Today Z23 - Encounter for immunization Referrals Gastroenterology Referral Z12.11 - Encounter for screening for malignant neoplasm of colon Nurse Navigator Referral F33.9 - Major depressive disorder, recurrent, unspecified, F41.1 - Generalized anxiety disorder [employer] WORK[employer] Referral Z12.4 - Encounter for screening for malignant neoplasm of cervix Podiatry Referral B35.1 - Tinea unguium Medications: New terbinafine HCl 1% (Antifungal (terbinafine)) 1 appl topical BID 30 grams 2RF carbamide peroxide 6.5% (Debrox) 5 drps otic (ears) DAILY 5 days 15 mL 0RF BILAT EARS Changed From tizanidine 4 mg PO TID PRN 270 tabs 0RF for muscle spasm To tizanidine 4 mg PO TID 5 days PRN 15 tabs 0RF for muscle spasm Refilled albuterol sulfate 90 mcg/actuation (Ventolin HFA) 2 puffs inhalation Q4-6H PRN 8.5 grams 1RF shortness of breath or wheezing melatonin 5 mg PO BEDTIME PRN 90 tabs 2RF sleep Discontinued aripiprazole Discontinued Reason: Patient no longer taking 6 mg (3 x 2 mg) PO BEDTIME 30 days 90 tabs 0RF Patient Instructions: Health screenings for women You should visit your health care provider from time to time, even if you are healthy. The purpose of these visits is to: Screen for medical issues Assess your risk for future medical problems Encourage a healthy lifestyle Update vaccinations and other preventive care services Help you get to know your provider in case of an illness Information Even if you feel fine, you should still see your provider for regular checkups. These visits can help you avoid problems in the future. For example, the only way to find out if you have high blood pressure is to have it checked regularly. High blood sugar and high cholesterol levels also may not have any symptoms in the early stages. A simple blood test can check for these conditions. There are specific times when you should see your provider or receive specific health screenings. The [place] Preventive Services Task Force publishes a list of recommended screenings. Below are screening guidelines for women ages 18 to 39. BLOOD PRESSURE SCREENING Your blood pressure should be checked at least once every 3 to 5 years if: Your blood pressure is in the normal range (top number less than 120 mm Hg and bottom number less than 80 mm Hg) You don't have risk factors for high blood pressure Ask your provider if you need your blood pressure checked more often if: The top number is 120 to 129 mm Hg or the bottom number is 70 to 79 mm Hg You have diabetes, heart disease, kidney problems, are overweight, or have certain other health conditions You have a first-degree relative with high blood pressure You are Black You had high blood pressure during a If the top number is 130 mm Hg or greater or the bottom number is 80 mm Hg or greater, this is considered stage 1 hypertension. Schedule an appointment with your provider to learn how you can reduce your blood pressure. Watch for blood pressure screenings in your area. Ask your provider if you can stop in to have your blood pressure checked. BREAST CANCER SCREENING Experts do not agree about the benefits of breast self-exams in finding breast cancer or saving lives. Talk to your provider about what is best for you. A screening mammogram is not recommended for most women under age 40. Your provider may discuss and recommend mammograms, MRI scans, or ultrasounds if you have an increased risk for breast cancer, such as: A mother or sister who had breast cancer at a young age (most often starting screening earlier than the age the close relative was diagnosed) You carry a high-risk genetic marker CERVICAL CANCER SCREENING Cervical cancer screening should start at age 21 years unless your provider advises otherwise. After the first test: Women ages 21 through 29 should have a Pap test every 3 years. Exoprts do not agree on whether HPV testing is recommended for this age group. Women ages 30 through 65 should be screened with either a Pap test every 3 years or the HPV test every 5 years or both tests every 5 years (called cotesting ). Women who have been treated for precancer (cervical dysplasia) should continue to have Pap tests for 20 years after treatment or until age 65, whichever is longer. If you have had your uterus and cervix removed (total hysterectomy), and you have not been diagnosed with cervical cancer or precancer (high grade cervical neoplasia), you do not need cervical cancer screening. CHOLESTEROL SCREENING Cholesterol screening should begin at: Age 45 for women with no known risk factors for coronary heart disease Age 20 for women with known risk factors for coronary heart disease Repeat cholesterol screening should take place: Every 5 years for women with normal cholesterol levels More often if changes occur in lifestyle (including weight gain and diet) More often if you have diabetes, heart disease, kidney problems, or certain other conditions DIABETES SCREENING You should be screened for diabetes starting at age 35 and then repeated every 3 years if you have no risk factors for diabetes. Screening may need to start earlier and be repeated more often if you have other risk factors for diabetes, such as: You have a first degree relative with diabetes. You are overweight or have obesity. You have high blood pressure, prediabetes, or a history of heart disease. Screening for diabetes should be done if you are planning to become and you are overweight and have other risk factors such as high blood pressure. DENTAL EXAM Go to the dentist once or twice every year for an exam and cleaning. Your dentist will evaluate if you need more frequent visits. EYE EXAM Have an eye exam every 5 to 10 years before age 40. If you have vision problems, have an eye exam every 2 years or more often if recommended by your provider. You should have an eye exam that includes an examination of your retina (back of your eye) at least every year if you have diabetes. IMMUNIZATIONS Commonly needed vaccines include: Flu shot: get one every year. COVID-19 vaccine: ask your provider what is best for you. Tetanus-diphtheria and acellular pertussis (Tdap) vaccine: have one at or after age 19 as one of your tetanus-diphtheria vaccines if you did not receive it as an adolescent. Tetanus-diphtheria: have a booster (or Tdap) every 10 years. Varicella vaccine: receive 2 doses if you never had chickenpox or the varicella vaccine. Hepatitis B vaccine: receive 2, 3, or 4 doses, depending on your exact circumstances. Measles, mumps, and rubella (MMR) vaccine: receive 1 to 2 doses if you are not already immune to MMR. Your provider can tell you if you are immune. Ask your provider about the human papillomavirus (HPV) vaccine if: You have not received the HPV vaccine in the past You have not completed the full vaccine series (you should catch up on this shot) Ask your provider if you should receive other immunizations if you have certain health problems that increase your risk for some diseases such as pneumonia. INFECTIOUS DISEASE SCREENING Women who are sexually active should be screened for chlamydia and gonorrhea up until age 25. Women 25 years and older should be screened for chlamydia and gonorrhea if at high risk. Screening for hepatitis C: All adults ages 18 to 79 should get a one-time test for hepatitis C. people should be screened at every . Screening for human immunodeficiency virus (HIV): All people ages 15 to 65 should get a one-time test for HIV. Depending on your lifestyle and medical history, you may also need to be screened for infections such as syphilis and HIV, as well as other infections. PHYSICAL EXAM All adults should visit their provider from time to time, even if they are healthy. The purpose of these visits is to: Screen for disease Assess your risk of future medical problems Encourage a healthy lifestyle Update your vaccinations and other preventive care services Maintain a relationship with a provider in case of an illness Your height, weight, and BMI should be checked at every exam. During your exam, your provider may ask you about: Depression and anxiety Diet and exercise Alcohol and tobacco use Safety issues, such as using seat belts, smoke detectors, and intimate partner violence Your medicines and risk for interactions SKIN SELF-EXAM Your provider may check your skin for signs of skin cancer, especially if you're at high risk, such as if you: Have had skin cancer before Have close relatives with skin cancer Have a weakened immune system OTHER SCREENING Talk with your provider about colon cancer screening if you have a strong family history of colon cancer or polyps, or if you have had inflammatory bowel disease or polyps yourself. Routine bone density screening of women under 40 is not recommended. Smoking Cessation How to Quit There are a lot of ways to quit smoking and many resources to help you. Family members, friends, and co-workers may be supportive or encouraging, but to be successful the desire and commitment to quit must be your own. Most people who have been able to successfully quit smoking made at least one unsuccessful attempt in the past. Try not to view past attempts to quit as failures, but rather as learning experiences. Stopping smoking or using smokeless tobacco is difficult, but anyone can do it. Know the symptoms to expect when you stop. Common symptoms include: ? An intense craving for nicotine ? Anxiety, tension, restlessness, frustration, or impatience ? Difficulty concentrating ? Drowsiness or trouble sleeping, as well as bad dreams and nightmares ? Drowsiness and trouble sleeping ? Headaches ? Increased appetite and weight gain ? Irritability or depression How severe your symptoms are depends on how long you smoked and how many cigarettes you smoked each day. Feel ready to quit? ? First and foremost, set a quit date and quit completely on that day. Before your quit date, you may begin reducing your cigarette use. But remember, there is no safe level of cigarette smoking. ? List the reasons why you want to quit. Include both short- and long-term benefits. ? Identify the times you are most likely to smoke. For example, do you tend to smoke when feeling stressed or down? When out at night with friends? While drinking coffee or alcohol? When bored? While driving? Right after a meal or sex? During a work break? While watching TV or playing cards? When you are with other smokers? ? Let all of your friends, family, and co-workers know of your plan to stop smoking and your quit date. Just being aware that they know what you're going through can be helpful, especially when you are grumpy. ? Get rid of all your cigarettes just before the quit date, and clean out anything that smells like smoke, such as clothes and furniture. Make a plan about what you will do instead of smoking at those times when you are most likely to smoke. ? Be as specific as possible. For example, drink tea instead of coffee -- tea may not trigger the desire for a cigarette. Or, take a walk when you feel stressed. ? Remove ashtrays and cigarettes from the car. Place pretzels or hard candies there instead. Pretend-smoke with a straw. ? Find activities that focus your hands and mind but are not taxing or fattening. Computer games, solitaire, knitting, sewing, and crossword puzzles may help. ? If you normally smoke after eating, find other ways to end a meal. Play a tape or CD, eat a piece of fruit, get up and make a phone call, or take a walk (a good distraction that also de calories). Make other changes in your lifestyle. ? Change your daily schedule and habits. Eat at different times or eat several small meals instead of three large ones. Sit in a different chair or even a different room. ? Satisfy your oral habits by eating celery or other low-calorie snack, chewing sugarless gum, or sucking on a cinnamon stick. ? Go to public places and restaurants where smoking is prohibited or restricted. ? Eat regular meals and don't eat too much candy or sweet things. ? Get more exercise. Take walks or ride a bike. Exercise helps relieve the urge to smoke. Set short-term quitting goals and reward yourself when you meet them. ? Every day, put the money you normally spend on cigarettes in a jar. Then buy something pleasurable after a period of time. ? Try not to think about all the days ahead you will need to avoid smoking. Take it one day at a time. ? Even one puff or one cigarette will make your desire for more cigarettes even stronger. However, it is normal to make mistakes. So even if you have one cigarette, you don't need to take the next one. Other tips to help you quit smoking and stick to it: ? Enroll in a smoking cessation program (hospitals, health departments, community centers, and work sites often offer programs). Learn about self-hypnosis or other techniques. ? Ask your health care provider about prescription medications that are safe and appropriate for you. ? Find out about nicotine patches, gum, and sprays. The [employer]'s web site -- www.cancer.org -- is an excellent resource for smokers who are trying to quit, and the [employer] can help some smokers kick the habit. Above all, don't get discouraged if you aren't able to quit smoking the first time. Nicotine addiction is a hard habit to break. Try something different next time. Develop new strategies, and try again. Many people take several attempts to finally kick the habit. Coding Level of Care Code Est Pt Prev Care 40-64y(38007) Diagnoses Encounter for general adult medical examination without abnormal findings Z00.00 HERRERA (generalized anxiety disorder) F41.1 MDD (major depressive disorder), recurrent episode F33.9 Polysubstance abuse F19.10 Tobacco dependence with current use F17.200 Cervical cancer screening Z12.4 Colon cancer screening Z12.11 Onychomycosis B35.1 Laboratory exam ordered as part of routine general medical examination Z00.00 Mild intermittent asthma in adult without complication J45.20 GERD without esophagitis K21.9 Low back pain M54.50 Impacted cerumen, bilateral H61.23 Additional Codes HERRERA-7 Assessment Billing - HERRERA-7 Assessment Tool: HERRERA-7 Assessment 87074 ([id number]) Vital Signs *Quality* - CPT code: 66783 - 4-10 Minutes ([id number])
[2023-09-15 10:03] VITALS: BP 98/68; PULSE 97; RESP 16; TEMP 36.4; O2SAT 97; BMI 28.2
== END 2023-09-15 11:25 | disposition home or self-care (01) ==
PROVIDERS: PCP Family Medicine; Visit Provider Nurse Practitioner Family
DX: Z00.00 Encounter for general adult medical examination without abnormal findings (principal); F33.9 Major depressive disorder, recurrent, unspecified; F19.10 Other psychoactive substance abuse, uncomplicated; Z23 Encounter for immunization; F41.1 Generalized anxiety disorder; F17.210 Nicotine dependence, cigarettes, uncomplicated; Z12.11 Encounter for screening for malignant neoplasm of colon; B35.1 Tinea unguium; J45.20 Mild intermittent asthma, uncomplicated; K21.9 Gastro-esophageal reflux disease without esophagitis; M54.50 Low back pain, unspecified; H61.23 Impacted cerumen, bilateral
CPT/HCPCS: 90471; 90715; 99396

== ENCOUNTER 2023-09-15 10:37 | Outpatient (REF) | payer OTHER, MEDICAID, SELFPAY ==
[2023-09-15 15:01] LABS: Estimated Average Glucose 103 mg/dL; Hemoglobin A1c % 5.2 % (<6.0)
[2023-09-15 15:13] LABS: Alanine Aminotransferase 15 U/L (0-31); Albumin Level 4.6 g/dL (3.5-5.0); Alkaline Phosphatase 77 U/L (39-117); Anion Gap 13 (12-20); Aspartate Amino Transferase 17 U/L (5-31); Bilirubin Total 0.6 mg/dL (0.0-1.0); Blood Urea Nitrogen 11 mg/dL (9-16); Calcium 10.3 mg/dL (8.4-10.2); Carbon Dioxide 27 mmol/L (22-29); Chloride 105 mmol/L (96-108); Estimated Glomerular Filt Rate > 60; Glucose Random 104 mg/dL (60-115); Potassium 3.8 mmol/L (3.3-5.1); Sodium 141 mmol/L (135-145); Total Protein 7.6 g/dL (6.5-8.0)
[2023-09-15 15:28] LABS: TSH reflex Free T4 0.67 uIU/mL (0.32-4.0)
[2023-09-16 11:54] LABS: LDL Cholesterol Direct 158 mg/dL (<100)
== END 2023-09-15 10:38 | disposition home or self-care (01) ==
LOC: HO.WFDLDS 10:37
PROVIDERS: Family Medicine; Visit Provider Nurse Practitioner Family
DX: Z00.00 Encounter for general adult medical examination without abnormal findings (principal); Z13.1 Encounter for screening for diabetes mellitus
CPT/HCPCS: 36415; 80053; 83036; 83721; 84443

== ENCOUNTER 2023-11-10 15:01 | Outpatient (AMB) | payer OTHER, MEDICAID, SELFPAY ==
--- NOTE | 2023-11-10 15:02 | MHC.OFFWIV ---
Intake Vital Signs 11/10/23 15:03 Height 5 ft 5.5 in Weight 169 lb BMI 27.7 BP 102/66 Blood Pressure Location Rt brachial Position Sitting Pulse 75 Pulse Source Pulse Oximeter Temp 98.1 F Temp Source Oral Pulse Oximetry (%) 98 Oxygen Delivery Method Room Air Intake Visit Reasons: EP ear pain, ringing bilat. Intake Note: pt c/o ear pain, ringing, bilaterally. x 2 weeks Patient Tobacco Use Status: Current someday Tobacco user Allergies escitalopram Allergy (Unknown, Verified 11/10/23 15:03) Unknown latex [LATEX] Allergy (Unknown, Verified 11/10/23 15:03) RASH, THROAT SWELLING prednisone [PREDNISONE] Allergy (Unknown, Verified 11/10/23 15:03) RASH, THROAT SWELLING latex Allergy (Unknown, Uncoded 11/10/23 15:03) rash Latex Gloves Allergy (Unknown, Uncoded 11/10/23 15:03) Unknown Paroxetine HCl Allergy (Unknown, Uncoded 11/10/23 15:03) unknown prednisone Allergy (Unknown, Uncoded 11/10/23 15:03) rash Do you need a note to return to daycare/school/sports/work: No HPI EP ear pain, ringing bilat. HPI Details This note is constructed using voice recognition software. While every effort has been made to ensure accuracy, pediatric occupational therapist errors may have been included. The patient is a 48 year old female who presents to the clinic today with bilateral ear pain and ringing for the last couple of weeks. She notes that she has a chronic history of allergies and does treat this with both a daily Zyrtec and Flonase every day. She also notes that he has a chronic history of cerumen impaction and feels that she may have a little bit of that. She denies fever, chills, cough, shortness of breath, or any other URI symptoms. [facility], [facility] Medical History (Updated 09/16/23 @ 15:47 by AMANDA Leger) Smoking Depression with anxiety Difficulty sleeping Right hand pain Ear discomfort No pertinent past medical history Surgical History No pertinent past surgical history Family History Father Substance abuse Cancer Other Mental health disorder Social History Housing: Apartment Patient Tobacco Use Status: Current someday Tobacco user Tobacco use type: Cigarette Cigarettes Per Day: 3 e-Cigarette/Vaping Use: Never Used service: No Current occupational status: disabled Current occupational exposures/hazards: No Cognitive needs: No Hearing needs: No Vision needs: Yes Review of Systems Const All systems reviewed & are unremarkable except as noted in HPI and below Physical Exam Vital Signs: Last Vital Signs Temp 98.1 F 11/10/23 15:03 Pulse 75 11/10/23 15:03 BP 102/66 11/10/23 15:03 Pulse Ox 98 11/10/23 15:03 Oxygen Delivery Method Room Air 11/10/23 15:03 BMI result Body Mass Index 27.7 Const General: cooperative, healthy appearing, comfortable and no acute distress Orientation/consciousness: patient oriented x3 Limitations: no limitations HEENT Head: Yes normal to inspection Ears: hearing grossly normal bilaterally, external ears normal and unable to visualize TM (Bilaterally due to cerumen prior to irrigation) General nose exam: Normal external nose present, No nasal discharge present and Abnormal mucous membranes and turbinates present boggy and pale Face and sinus: Yes normal facial exam and Yes sinuses nontender Mouth: Normal oral and palatal mucosa present and moist mucous membranes Throat: Yes tonsils normal, Yes uvula midline, Yes posterior oropharynx abnormal (Erythema), Yes postnasal drainage and Yes cobblestoning Eyes General: appearance normal, both eyes and all related structures Neck Neck: Yes normal visual inspection Resp Effort & Inspection: normal respiratory effort, able to speak in complete sentences, Actively coughing, no respiratory distress, not tachypneic, no tripod positioning and no use of accessory muscles Auscultation: clear to auscultation bilaterally Cardio Rate: regular rate Rhythm: regular rhythm Heart sounds: normal S1 and S2 Skin General skin exam: no rashes or lesions noted Neuro General: patient oriented x3 Extrem General: Yes normal to inspection and Yes no clubbing, cyanosis or edema Office Procedures Cerumen Removal From which ear canal was the cerumen removed: bilateral Removal: irrigation Notes: patient tolerated procedure well, no complications and ear canal clear [id number] Irrigation/Lavage Assessment & Plan Assessment & Plan (1) Impacted cerumen, bilateral: Code(s): H61.23 - Impacted cerumen, bilateral Plan: In office irrigation successful. Advised consideration of Debrox drops for cerumen softening for future use if needed. (2) Allergic rhinitis: Code(s): J30.9 - Allergic rhinitis, unspecified Qualifiers: Allergic rhinitis seasonality: unspecified Allergic rhinitis trigger: unspecified Qualified Code(s): J30.9 - Allergic rhinitis, unspecified Plan: Advised ongoing use of her at-home medication. Supportive measures encouraged and reviewed. Advised consideration of sinus rinse if needed. Advised patient to follow up with primary care provider with worsening or failure to resolve. Plan See above for full details and plan. Coding Level of Care Code Est Pt Level 4 (96153) Diagnoses Impacted cerumen, bilateral H61.23 Allergic rhinitis, unspecified seasonality, unspecified trigger J30.9 Allergic rhinitis seasonality: unspecified Allergic rhinitis trigger: unspecified CPT Codes Office Procedure - CPT: 14036-Pjq Irrigation/Lavage ([id number])
[2023-11-10 15:03] VITALS: BP 102/66; PULSE 75; TEMP 36.7; O2SAT 98; BMI 27.7
== END 2023-11-10 17:39 | disposition home or self-care (01) ==
PROVIDERS: PCP Family Medicine; Visit Provider Registered Nurse
DX: H61.23 Impacted cerumen, bilateral (principal); J30.9 Allergic rhinitis, unspecified

== ENCOUNTER → 2023-11-10 15:01 | Outpatient (BNVA) | payer OTHER, MEDICAID, SELFPAY | PROVIDERS: PCP Family Medicine | DX: H61.23 Impacted cerumen, bilateral (principal); J30.9 Allergic rhinitis, unspecified | CPT/HCPCS: 69209 ==

== ENCOUNTER 2024-01-06 08:41 | Outpatient (REF) | payer OTHER, MEDICAID, SELFPAY ==
[2024-01-06 09:04] LABS: MANUAL DIFF FLAG NO
[2024-01-06 09:34] LABS: Basophils Percent Auto 0.4 % (0-2); Eosinophils Absolute Auto 0.3 X10*3/uL (0.0-0.4); Eosinophils Percent Auto 3.9 % (0-4); Hematocrit 42.3 % (37.0-47.0); Hemoglobin 14.6 g/dl (12.0-16.0); Imm Gran Abs Auto 0.02 X10*3/uL (0.00-0.03); Imm Gran Pct Auto 0.3 % (0.0-0.4); Lymphocytes Absolute Auto 2.3 X10*3/uL (1.2-4.9); Lymphocytes Percent Auto 34.2 % (20-40); Mean Corpuscular HGB Conc 34.5 g/dl (31.0-35.0); Mean Corpuscular Volume 95.5 fL (80.0-98.0); Mean Platelet Volume 9.9 fL (9.4-12.3); Monocytes Absolute Auto 0.5 X10*3/uL (0.1-1.2); Monocytes Percent Auto 7.3 % (2-11); Neutrophils Absolute Auto 3.6 x10*3/uL (2.0-8.3); Neutrophils Percent Auto 53.9 % (45-73); Platelet Count 225 X10*3/uL (160-400); Red Blood Count 4.43 X10*6/uL (4.20-5.50); Red Cell Distribution Width 12.4 % (11.0-16.0); White Blood Count 6.7 X10*3/uL (4.8-10.8)
[2024-01-06 09:38] LABS: Appearance Urine Turbid; Color Urine Yellow; Glucose Urine UA Negative (Negative); Leukocyte Esterase Urine Trace (Negative); Nitrite Urine Positive (Negative); UMIC TRIGGER UA YES; Urine Blood Trace (Negative); Urine Ketones Negative (Negative); Urine Protein Negative (Neg-Trace)
[2024-01-06 09:53] LABS: Bacteria Urine 4+ (None Seen); Hyaline Casts Urine 0-2 /LPF (0-2)
[2024-01-06 10:03] LABS: Alanine Aminotransferase 19 U/L (0-31); Albumin Level 4.3 g/dL (3.5-5.0); Alkaline Phosphatase 79 U/L (39-117); Anion Gap 10 (12-20); Aspartate Amino Transferase 20 U/L (5-31); Bilirubin Total 0.5 mg/dL (0.0-1.0); Blood Urea Nitrogen 9 mg/dL (9-16); Calcium 9.2 mg/dL (8.4-10.2); Carbon Dioxide 26 mmol/L (22-29); Chloride 108 mmol/L (96-108); Cholesterol 128 mg/dL (<200); Estimated Glomerular Filt Rate > 60; Glucose Fasting 125 mg/dL (60-99); HDL Cholesterol 41 mg/dL (>40); LDL Cholesterol Calculated 71 mg/dL (<100); Sodium 140 mmol/L (135-145); Total Protein 6.8 g/dL (6.5-8.0); Triglycerides 81 mg/dL (<150)
[2024-01-06 10:05] LABS: Creatinine Urine 156.89 mg/dL; Microalbum/Creatinine Ratio Ur 3.8 ug/mg cr (<30)
[2024-01-06 10:08] LABS: Cholesterol 127 mg/dL (<200); HDL Cholesterol 40 mg/dL (>40); LDL Cholesterol Calculated 72 mg/dL (<100); Triglycerides 79 mg/dL (<150)
[2024-01-06 10:24] LABS: TSH reflex Free T4 1.39 uIU/mL (0.32-4.0)
== END 2024-01-06 08:42 | disposition home or self-care (01) ==
LOC: HO.LAB 08:41
PROVIDERS: Nurse Practitioner Family; PCP Family Medicine; Visit Provider Family Medicine
DX: Z00.00 Encounter for general adult medical examination without abnormal findings (principal); I10 Essential (primary) hypertension; E78.5 Hyperlipidemia, unspecified
CPT/HCPCS: 36415; 80053; 80061; 81001; 82043; 82570; 84443; 85025

== ENCOUNTER 2024-03-07 15:23 | Outpatient (AMB) | payer OTHER, MEDICAID, SELFPAY ==
--- NOTE | 2024-03-07 15:19 | A.OFFPC_ITS ---
Intake Visit Reasons: teleheaLTH LABS Allergies escitalopram Allergy (Unknown, Verified 03/07/24 15:20) Unknown latex [LATEX] Allergy (Unknown, Verified 03/07/24 15:20) RASH, THROAT SWELLING prednisone [PREDNISONE] Allergy (Unknown, Verified 03/07/24 15:20) RASH, THROAT SWELLING latex Allergy (Unknown, Uncoded 11/10/23 15:03) rash Latex Gloves Allergy (Unknown, Uncoded 11/10/23 15:03) Unknown Paroxetine HCl Allergy (Unknown, Uncoded 11/10/23 15:03) unknown prednisone Allergy (Unknown, Uncoded 11/10/23 15:03) rash Medication List - Last Reconciled 03/07/24 by Vivek Brandon MD albuterol sulfate 90 mcg/actuation (Ventolin HFA) 2 puffs inhalation Q4-6H PRN aripiprazole 6 mg (3 x 2 mg) PO BEDTIME 30 days atorvastatin 20 mg PO BEDTIME cetirizine 10 mg PO DAILY PRN 90 days clonazepam 1 mg PO BID PRN 15 days fluticasone propionate 50 mcg/actuation 1 spray intranasal DAILY 30 days ibuprofen 800 mg PO TID PRN ketotifen fumarate 0.025%(0.035%) ([place]) 1 drp ophthalmic (eye) BID PRN 30 days melatonin 5 mg PO BEDTIME PRN pantoprazole 40 mg PO DAILY terbinafine HCl 1% (Antifungal (terbinafine)) 1 appl topical BID tizanidine 4 mg PO TID PRN 15 days Tobacco use date assessed: 09/15/23 Dental Screening Dental Screen Date: 09/15/23 HPI teleheaLTH LABS HPI Details 48 y/o female presents to f/u labs via t Sols. Labs drawn 01/06/24. Reviewed labs with pt. Elevated fasting glucose of 125. Triglycerides 79. TC 127. LDL 72. HDL 40. Does not have a therapist for her anxiety/depression. She is on Abilify, clonazepam for her mood. She reports appetite changes the past few months. She notes she has been losing weight as well. [facility] Medical History (Updated 03/07/24 @ 18:02 by Kasi Charles) Depression with anxiety Smoking Difficulty sleeping Right hand pain Ear discomfort No pertinent past medical history Surgical History No pertinent past surgical history Family History Father Substance abuse Cancer Other Mental health disorder Social History Housing: Apartment Patient Tobacco Use Status: Current someday Tobacco user Tobacco use type: Cigarette Cigarettes Per Day: 3 e-Cigarette/Vaping Use: Never Used service: No Current occupational status: disabled Current occupational exposures/hazards: No Cognitive needs: No Hearing needs: No Vision needs: Yes Questionnaire Thrive Questionnaire Date Thrive assessed: 09/15/23 HERRERA-7 AMB Questionnaire HERRERA-7 Date HERRERA - 7 assessed: 09/15/23 Source: Developed by Drs. Edwin Montez, Sapna Saucedo, Jonatan Aparicio and colleagues, with an educational harley from [employer]. Review of Systems Const Denies chills, Denies fatigue, Denies fever(s), Denies headache(s) and Denies weakness ENT Denies dizziness and Denies headache(s) Card Denies dyspnea Resp Denies cough, Denies dyspnea, Denies wheezing and Denies other (shortness of breath) Musc Denies numbness and Denies tingling Neuro Denies dizziness, Denies headache(s), Denies numbness, Denies tingling and Denies weakness Psych Denies anxiety and Denies depression Endo Denies fatigue Aller/Immun Denies wheezing Physical exam (Primary Care) Tobacco/Smoking Status: Tobacco use Status Tobacco use date assessed 09/15/23 03/07/24 15:21 Patient Tobacco Use Status Current someday Tobacco 03/07/24 15:21 Tobacco use type Cigarette 03/07/24 15:21 e-Cigarette/Vaping Use Never Used 03/07/24 15:21 Thrive Assessment: Date of Thrive Assessment Date Thrive assessed 09/15/23 03/07/24 15:21 Telehealth Telehealth Telehealth Platform: Telephone Location of provider rendering services: practice address Location of patient: address on file Patient Identification confirmed using: Name, : Yes Telehealth method: voice only Patient verbally consented to treatment: Yes Patient verbally consented to billing insurance company: Yes Patient informed of any privacy concerns related to visit: Yes Minutes spent on Phone/Video with Pt.: 9 Coding Level of Care Code Tele Est Pt Level 2 (66674) Diagnoses Depression with anxiety F41.8 Hyperlipidemia E78.5 Elevated fasting glucose R73.01 Alteration in appetite R63.8 Assessment & Plan Assessment & Plan (1) Depression with anxiety: Code(s): F41.8 - Other specified anxiety disorders Category: Medical Plan: Follow-up?on?anxiety?and?depression. Patient?is?taking?aripiprazole?and?clonazepam?as?prescribed She?does?not?have?a?therapist Continue?current?medication?regimen Referred?to?[facility]?outpatient?psychiatric?consult?team?to? help?get?her?connected?with?a?therapist (2) Hyperlipidemia: Code(s): E78.5 - Hyperlipidemia, unspecified Category: Medical Plan: Lipids were significantly elevated and she was started on Atorvastatin LDL?decreased?from?158?down?to?72 Good?control Continue?current?medication (3) Elevated fasting glucose: Code(s): R73.01 - Impaired fasting glucose Category: Medical Plan: History?of?elevated?fasting?blood?sugar We?will?continue?to?monitor Will?check?A1c?at?her?next?visit (4) Alteration in appetite: Code(s): R63.8 - Other symptoms and signs concerning food and fluid intake Category: Medical Plan: Patient?notes?a?decrease?in?appetite. BMI?at?last?check?was?27.7.??She?notes?that?she?has?lost?about?10?lb. Will?follow?weight?when?she?returns?to?the?office?in?about?2?months She?will?call?or?return?to?the?office?sooner?if?she?continues?to?lose?weight?pre cipitously Orders: Referrals Psychiatry Outpatient Consultation Service F41.8 - Other specified anxiety disorders
== END 2024-03-07 17:05 | disposition home or self-care (01) ==
LOC: HO.HMCFM 15:23
PROVIDERS: PCP Family Medicine; Visit Provider Family Medicine
DX: F41.8 Other specified anxiety disorders (principal); E78.5 Hyperlipidemia, unspecified; R73.01 Impaired fasting glucose; R63.8 Other symptoms and signs concerning food and fluid intake

== ENCOUNTER → 2024-03-07 15:23 | Outpatient (BNVA) | payer OTHER, MEDICAID, SELFPAY | PROVIDERS: PCP Family Medicine; Visit Provider Family Medicine ==

== ENCOUNTER 2024-05-08 10:21 | Outpatient (AMB) | payer OTHER, MEDICAID, SELFPAY ==
--- NOTE | 2024-05-08 10:26 | A.OFFPC_ITS ---
Vital Signs 05/08/24 10:36 Height 5 ft 5.5 in Weight 174 lb 4 oz BMI 28.6 BP 110/60 Blood Pressure Location Rt brachial Position Sitting Respiration 16 Pulse 98 Pulse Source Pulse Oximeter Temp 98.0 F Temp Source Oral Pulse Oximetry (%) 98 Oxygen Delivery Method Room Air Intake Visit Reasons: f/u depression/anxiety, weight, chronic conditions Intake Note: patient is scheduled for anxiety and depression and weight loss Double End Sewer Required: No Allergies escitalopram Allergy (Unknown, Verified 05/08/24 10:32) Unknown latex [LATEX] Allergy (Unknown, Verified 05/08/24 10:32) RASH, THROAT SWELLING prednisone [PREDNISONE] Allergy (Unknown, Verified 05/08/24 10:32) RASH, THROAT SWELLING latex Allergy (Unknown, Uncoded 11/10/23 15:03) rash Latex Gloves Allergy (Unknown, Uncoded 11/10/23 15:03) Unknown Paroxetine HCl Allergy (Unknown, Uncoded 11/10/23 15:03) unknown prednisone Allergy (Unknown, Uncoded 11/10/23 15:03) rash Medication List - Last Reconciled 05/08/24 by Vivek Brandon MD albuterol sulfate 90 mcg/actuation (Ventolin HFA) 2 puffs inhalation Q4-6H PRN aripiprazole 10 mg PO BEDTIME atorvastatin 20 mg PO BEDTIME cetirizine 10 mg PO DAILY PRN 90 days clonazepam 1 mg PO BID PRN 15 days fluticasone propionate 50 mcg/actuation 1 spray intranasal DAILY 30 days ibuprofen 800 mg PO TID PRN melatonin 5 mg PO BEDTIME PRN mirtazapine 45 mg PO BEDTIME pantoprazole 40 mg PO DAILY prazosin 8 mg PO BEDTIME tizanidine 4 mg PO TID PRN 15 days Tobacco use date assessed: 09/15/23 Dental Screening Dental Screen Date: 09/15/23 HPI f/u depression/anxiety, weight, chronic conditions HPI Details 49 y/o female presents to f/u depression /anxiety, weight, chronic conditions. Hx of elevated fasting glucose. A1c today 05/08/24 is She notes she has been working on her exercise, diet. She continues taking artovastatin for her lipids. PHQ-9 6, HERRERA-7 today. Continues to see her therapist. She is on abilify 10mg which she notes has been helping along with her mirtazapine. She notes her medication regimen has been helping her. [facility] Medical History (Updated 03/07/24 @ 18:02 by Kasi Charles) Depression with anxiety Smoking Difficulty sleeping Right hand pain Ear discomfort No pertinent past medical history Surgical History No pertinent past surgical history Family History Father Substance abuse Cancer Other Mental health disorder Social History Housing: Apartment Patient Tobacco Use Status: Current someday Tobacco user Tobacco use type: Cigarette Cigarettes Per Day: 3 e-Cigarette/Vaping Use: Never Used service: No Current occupational status: disabled Current occupational exposures/hazards: No Cognitive needs: No Hearing needs: No Vision needs: Yes Questionnaire PHQ-9 Over the last 2 weeks, how often have you been bothered by any of the following problems? 1. Little interest or pleasure in doing things: several days 2. Feeling down, depressed, or hopeless: several days 3. Trouble falling or staying asleep, or sleeping too much: several days 4. Feeling tired or having little energy: several days 5. Poor appetite or overeating: several days 6. Feeling bad about yourself - or that you are a failure or have let yourself or your family down: not at all 7. Trouble concentrating on things, such as reading the newspaper or watching television: several days 8. Moving or speaking so slowly that other people could have noticed. Or the opposite - being so fidgety or restless that you have been moving around a lot more than usual: not at all 9. Thoughts that you would be better off or of hurting yourself in some way: not at all Total score: 6 Depression Screening Interpretation: Negative (Stable) Depression Screening Done: Yes 75471 - PHQ-9 Billing: Yes Source: Developed by Drs. Edwin Montez, Sapna Saucedo, Jonatan Aparicio and colleagues, with an educational harley from [employer]. Thrive Questionnaire Date Thrive assessed: 09/15/23 I am a: Patient What is your living situation today?: I have a steady place to live Within the past 12 months, did the food you bought not last and you didn't have the money to get more?: Often true Within the past 12 months, did you worry whether your food would run out before you got money to buy more?: Often true Do you have trouble paying for medicines?: No Do you have trouble getting transportation to medical appointments?: No Do you have trouble paying your heating and electricity bill?: Yes Do you have trouble taking care of your child, family member or friend?: No Do you have trouble with day-to-day activities such as bathing, preparing meals, shopping, managing finances, etc.?: Yes Are you currently unemployed and looking for a job?: No Are you interested in more education?: No Please select the resources that you would like help with: None Currently or been in a relationship where the following occur: I choose not to answer THRIVE Score: 3 AUDIT C Alcohol Use Questionnaire (AUDIT-C) 1. How often do you have a drink containing alcohol?: Monthly or less 2. How many drinks containing alcohol do you have on a typical day when you are drinking?: 1 or 2 3. How often do you have six or more drinks on one occasion?: Never Total Score: 1 HERRERA-7 AMB Questionnaire HERRERA-7 Date HERRERA - 7 assessed: 09/15/23 Feeling nervous, anxious, or on edge: 1 = Several days Not being able to stop or control worryin = Several days Worrying too much about different things: 1 = Several days Trouble relaxin = Several days Being so restless that it is hard to sit still: 1 = Several days Becoming easily annoyed or irritable: 1 = Several days Feeling afraid as if something awful might happen: 1 = Several days Total HERRERA-7 score (0-4 normal; 5-9 mild; 10-14 moderate; 15-21 severe): 7 Source: Developed by Drs. Edwin Montez, Sapna Saucedo, Jonatan Aparicio and colleagues, with an educational harley from [employer]. Review of Systems Const Denies chills, Denies fatigue, Denies fever(s), Denies headache(s) and Denies weakness ENT Denies dizziness and Denies headache(s) Card Denies dyspnea Resp Denies cough, Denies dyspnea, Denies wheezing and Denies other (shortness of breath) Musc Denies numbness and Denies tingling Neuro Denies dizziness, Denies headache(s), Denies numbness, Denies tingling and Denies weakness Psych Reports anxiety and Reports depression Endo Denies fatigue Aller/Immun Denies wheezing Physical exam (Primary Care) Vital Signs: Last Vital Signs Temp 98.0 F 05/08/24 10:36 Pulse 98 05/08/24 10:36 Resp 16 05/08/24 10:36 BP 110/60 05/08/24 10:36 Pulse Ox 98 05/08/24 10:36 Oxygen Delivery Method Room Air 05/08/24 10:36 BMI result Body Mass Index 28.6 Tobacco/Smoking Status: Tobacco use Status Tobacco use date assessed 09/15/23 05/08/24 10:26 Patient Tobacco Use Status Current someday Tobacco 05/08/24 10:26 Tobacco use type Cigarette 05/08/24 10:26 e-Cigarette/Vaping Use Never Used 05/08/24 10:26 PHQ-9: PHQ-9 Score PHQ-9: Total score 6 05/08/24 10:26 Depression Screening Interpretation: Negative (Stable) Thrive Assessment: Date of Thrive Assessment Date Thrive assessed 09/15/23 05/08/24 10:26 Currently or been in a relationship where the following occur: I choose not to answer Const General: well developed; No acute distress Nutritional Appearance: well nourished Orientation/consciousness: patient oriented x3 HENMT Head: Yes normocephalic and Yes atraumatic Eyes General: appearance normal, both eyes and all related structures Pupils: Equal, round and reactive pupils present EOM: EOMs intact bilaterally Resp Effort & Inspection: normal respiratory effort Neuro General: patient oriented x3 and gait normal Cranial nerves: Yes Equal, round and reactive pupils present Psych Affect: normal affect Coding Level of Care Code Est Pt Level 3 (42353) Diagnoses Depression with anxiety F41.8 Elevated fasting glucose R73.01 Hyperlipidemia E78.5 Additional Codes PHQ-9 - 86541 - PHQ-9 Billing: Yes ([id number]) Assessment & Plan Assessment & Plan (1) Depression with anxiety: Code(s): F41.8 - Other specified anxiety disorders Category: Medical Plan: Patient?is?controlled?on?current?medication?regimen?by?her?psych?med?provider?an d?therapist. Continue?current?medications Follow-up?with?your?behavioral?health?team?as?recommended (2) Elevated fasting glucose: Code(s): R73.01 - Impaired fasting glucose Category: Medical Plan: A1c: ?5.5%.??Top?of?normal?range. Continue?to?work?at?a?diet?low?in?sugars?and?starches.??Watch?weight?and?continu e?exercise. (3) Hyperlipidemia: Code(s): E78.5 - Hyperlipidemia, unspecified Category: Medical Plan: Patient?is?taking?atorvastatin?as?prescribed Labs?are?ordered?and?she?get?these?drawn?prior?next?visit. Plan Patient?had?been?concern?re garding?decreased?appetite?and?some?weight?loss.??She?has?stopped?losing?weight? and?has?gained?back?weight. She?is?exercising?regularly?and?I?encouraged?this Orders: Orders Lipid Panel Today E78.5 - Hyperlipidemia, unspecified, Z00.00 - Encounter for general adult medical examination without abnormal findings Comprehensive [place]. Panel Fast Today E78.5 - Hyperlipidemia, unspecified, Z00.00 - Encounter for general adult medical examination without abnormal find ings Complete Blood Count Auto Diff Today Z00.00 - Encounter for general adult medical examination without abnormal findings Vitamin D 25-OH Total Today E55.9 - Vitamin D deficiency, unspecified Microalbumin, Random (w Creat) Today I10 - Essential (primary) hypertension TSH reflex Free T4 Today Z00.00 - Encounter for general adult medical examination without abnormal findings UA and rflx microscopic Today Z00.00 - Encounter for general adult medical examination without abnormal findings Medications: Changed From aripiprazole 6 mg (3 x 2 mg) PO BEDTIME 30 days 90 tabs 0RF To aripiprazole 10 mg PO BEDTIME
[2024-05-08 10:36] VITALS: BP 110/60; PULSE 98; RESP 16; TEMP 36.7; O2SAT 98; BMI 28.6
--- OUTSIDE RECORDS SUMMARY | 2024-05-08 11:37 | XMS_ITS | Clinical Summary ---
Author Organization [address] [facility] Address [address] [place] [address] Phone Care Team Providers Care Logistics Analyst Name Role Phone Vivek Brandon MD Primary Care Provider Allergies Active Allergy Reactions Criticality Noted Date Comments Prednisone 03/16/2024 Medications terbinafine (LamISIL) 250 mg tablet Take 1 tablet (250 mg total) by mouth 1 (one) time each day. 90 each 03/22/2024 Active Encounters Date Type Department Care Team Description 03/22/2024 Telephone Orthopedic Surgery [facility] [address] [phone] Gonzalo Siegel DPM Medication 03/16/2024 3:15 PM EST Consult Orthopedic Surgery [facility] [address] [phone] Gonzalo Siegel DPM Dermatophytosis of nail (Primary Dx) from Last 3 Months Social History Tobacco Use Types Packs/Day Years Used Date Smoking Tobacco: Never Assessed Comments Unknown Sex and Gender Information Value Date Recorded Sex Assigned at Not on file Legal Sex Female 5:43 PM EST Gender Identity Not on file Sexual Orientation Not on file Last Filed Vital Signs Vital Sign Reading Time Taken Comments Blood Pressure - - Pulse - - Temperature - - Respiratory Rate - - Oxygen Saturation - - Inhaled Oxygen Concentration - - Weight 72.6 kg (160 lb) 03/16/2024 3:23 PM EST Height 165.1 cm (5' 5 ) 03/16/2024 3:23 PM EST Body Mass Index 26.63 03/16/2024 3:23 PM EST Plan of Treatment Health Maintenance Due Date Last Done Comments Breast Cancer Screening 1974 Hepatitis B Vaccines (1 of 3 - 19+ 3-dose series) 1993 Cervical Cancer Screening: P ap Smear 1995 COVID-19 Vaccine (2023-2 5 season) 2023 01/23/2022, 10/15/2020, 09/16/2020 Influenza Vaccine (#1) 2023 Colorectal Cancer Screening: Colonoscopy 11/30/2023 Depression Screening 11/30/2023 HIV Screening 11/30/2023 Hepatitis C Screening 11/30/2023 Medicare Annual Wellness Visit 11/30/2023 Social Influencers of Health Screening 11/30/2023 Zoster Vaccines (1 of 2) 2024 DTaP,Tdap,and Td Vaccines (2 - Td or Tdap) 09/14/2033 09/15/2023 Pneumococcal Vaccine: 50+ Years Completed 01/23/2022, 11/19/2016 Pneumococcal Vaccine: Pediatrics (0 to 5 Years) and At-Risk Patients (6 to 64 Years) Aged Out 01/23/2022, 11/19/2016 No longer eligible based on patient's age to complete this topic HIB Vaccines Aged Out No longer eligi ble based on patient's age to complete this topic HPV Vaccines Aged Out No longer eligi ble based on patient's age to complete this topic Hepatitis A Vaccines Aged Out No long er eligible based on patient's age to complete this topic IPV Vaccines Aged Out No longer eligi ble based on patient's age to complete this topic MMR Vaccines Aged Out No longer eligi ble based on patient's age to complete this topic Meningococcal ACWY Vaccine Aged Out N o longer eligible based on patient's age to complete this topic Meningococcal B Vacine Aged Out No lo nger eligible based on patient's age to complete this topic RSV Immunization Patients Under 20 months Aged Out No longer eligible b ased on patient's age to complete this topic Varicella Vaccines Aged Out No longer eligible based on patient's age to complete this topic Procedures Procedure Name Priority Date/Time Associated Diagnosis Comments HEPATIC FUNCTION PANEL Routine 03/16/2024 3:43 PM EST Dermatophytosis of nail from Last 3 Months Results * Hepatic function panel (03/16/2024 3:43 PM EST) Total Protein 7.3 6.0 - 8.0 g/dL LAB CHEMISTRY METHOD 03/16/2024 7:23 PM [facility] Albumin 4.4 3.2 - 5.0 g/dL LAB CHEMISTRY METHOD 03/16/2024 7:23 PM [facility] Total Bilirubin 0.6 0.0 - 1.4 mg/dL LAB CHEMISTRY METHOD 03/16/2024 7:23 PM [facility] Bilirubin, Direct 0.2 0.0 - 0.3 mg/dL LAB CHEMISTRY METHOD 03/16/2024 7:23 PM [facility] Bilirubin, Indirect 0.4 0.0 - 1.1 mg/dL LAB CHEMISTRY METHOD 03/16/2024 7:23 PM [facility] ALT (SGPT) 33 10 - 60 unit/L LAB CHEMISTRY METHOD 03/16/2024 7:23 PM [facility] AST (SGOT) 22 10 - 42 unit/L LAB CHEMISTRY METHOD 03/16/2024 7:23 PM [facility] Alkaline Phosphatase 91 42 - 121 unit/L LAB CHEMISTRY METHOD 03/16/2024 7:23 PM [facility] Blood Venous blood specimen / Unknown Venipuncture / Unknown 03/16/2024 3:43 PM EST 03/16/2024 3:43 PM EST us Gonzalo Siegel DPDago LAB BLOOD ORDERABLES Christine l Result [facility] [address] [place] [address], from Last 3 Months Insurance MEDICAID - [place] [facility] MEDICARE ADVANTAGE on file Care Teams Logistics Analyst Relationship Specialty Start Date End Date Vivek Brandon MD [address] [place] [address] Dr [place] PCP - General 11/19/23
== END 2024-05-08 13:24 | disposition home or self-care (01) ==
LOC: HO.HMCFM 10:22
PROVIDERS: PCP Family Medicine; Visit Provider Family Medicine
DX: F41.8 Other specified anxiety disorders (principal); R73.01 Impaired fasting glucose; E78.5 Hyperlipidemia, unspecified

== ENCOUNTER → 2024-05-08 10:21 | Outpatient (BNVA) | payer OTHER, MEDICAID, SELFPAY | PROVIDERS: PCP Family Medicine; Visit Provider Family Medicine | DX: F41.8 Other specified anxiety disorders (principal); R73.01 Impaired fasting glucose; E78.5 Hyperlipidemia, unspecified; Z79.899 Other long term (current) drug therapy | CPT/HCPCS: 83036; 96127 ==

== ENCOUNTER 2024-11-03 11:22 | Outpatient (AMB) | payer OTHER, MEDICAID, SELFPAY ==
--- NOTE | 2024-11-03 11:28 | MHC.PC.OV ---
Vital Signs 11/03/24 11:31 Height 5 ft 5.5 in Weight 190 lb BMI 31.1 BP 116/72 Blood Pressure Location Lt brachial Position Sitting Respiration 18 Pulse 72 Pulse Source Pulse Oximeter Temp 97.2 F Temp Source Oral Pulse Oximetry (%) 97 Oxygen Delivery Method Room Air Intake Visit Reasons: CPE Intake Note: Physical Auditing Specialist Required: No Allergies escitalopram Allergy (Unknown, Verified 11/03/24 11:28) Unknown latex (LATEX) Allergy (Unknown, Verified 11/03/24 11:28) RASH, THROAT SWELLING prednisone (PREDNISONE) Allergy (Unknown, Verified 11/03/24 11:28) RASH, THROAT SWELLING latex Allergy (Unknown, Uncoded 11/03/24 11:28) rash Latex Gloves Allergy (Unknown, Uncoded 11/03/24 11:28) Unknown Paroxetine HCl Allergy (Unknown, Uncoded 11/03/24 11:28) unknown prednisone Allergy (Unknown, Uncoded 11/03/24 11:28) rash Tobacco use date assessed: 11/03/24 Dental Screening Dental Screen Date: 11/03/24 Did you have a dental visit in the last 12 months?: Yes Did you have a dental problem in the last 6 months where you did not have access to dental care?: No Was dental information given to patient?: Patient has dentist HPI HPI Comments History of Present Illness Details 48-year-old female with MDD, generalized anxiety disorder, current smoker, h/o polysubstance abuse (marijuana, benzo, cocaine), asthma, GERD presenting for CPE Specialists: Psychiatry Podiatry Health Maintenance: ? Colon has never had one-declines. ok for cologuard ? Mammo overdue ordered today ? [facility] Tdap UTD 2023 Asthma well controlled GERD well controlled chronic low back pain, using zanaflex, requests refill ROS CONSTITUTIONAL: Denies weight loss, fever and chills. HEENT: Denies changes in vision and hearing. RESPIRATORY: Denies SOB and cough. CV: Denies palpitations and CP GI: Denies abdominal pain, nausea, vomiting and diarrhea. : Denies dysuria and urinary frequency. MSK: Denies new myalgia and joint pain. SKIN: Denies rash and pruritus. NEUROLOGICAL: Denies headache PSYCHIATRIC: Denies recent changes in mood. PHYSICAL EXAM: GENERAL: Alert and oriented x 3. NAD EYES: EOMI. Anicteric. HENT: Moist mucous membranes. No scleral icterus. No cervical lymphadenopathy. LUNGS: Clear to auscultation bilaterally. CARDIOVASCULAR: Regular rate and rhythm. No murmur. No JVD. ABDOMEN: Soft, non-tender +bs EXTREMITIES: No edema. Non-tender. SKIN: No rashes or lesions. Warm. NEUROLOGIC: No focal neurological deficits. CN II-XII grossly intact PSYCHIATRIC: Cooperative. Appropriate mood and affect [facility] Medical History Depression with anxiety Smoking Difficulty sleeping Right hand pain Ear discomfort No pertinent past medical history Surgical History No pertinent past surgical history Family History Father Substance abuse Cancer Other Mental health disorder Social History Housing: Apartment Patient Tobacco Use Status: Current someday Tobacco user Tobacco use type: Cigarette Cigarettes Per Day: 3 Years Smoked: 28 e-Cigarette/Vaping Use: Never Used service: No Current occupational status: disabled Current occupational exposures/hazards: No Cognitive needs: No Hearing needs: No Vision needs: Yes Questionnaire Thrive Questionnaire Date Thrive assessed: 05/08/24 I am a: Patient What is your living situation today?: I have a steady place to live Within the past 12 months, did the food you bought not last and you didn't have the money to get more?: Often true Within the past 12 months, did you worry whether your food would run out before you got money to buy more?: Often true Do you have trouble paying for medicines?: No Do you have trouble getting transportation to medical appointments?: No Do you have trouble paying your heating and electricity bill?: Yes Do you have trouble taking care of your child, family member or friend?: No Do you have trouble with day-to-day activities such as bathing, preparing meals, shopping, managing finances, etc.?: Yes Are you currently unemployed and looking for a job?: No Are you interested in more education?: No Please select the resources that you would like help with: None Currently or been in a relationship where the following occur: I choose not to answer THRIVE Score: 3 AUDIT C Alcohol Use Questionnaire (AUDIT-C) 1. How often do you have a drink containing alcohol?: Monthly or less 2. How many drinks containing alcohol do you have on a typical day when you are drinking?: 1 or 2 3. How often do you have six or more drinks on one occasion?: Never Total Score: 1 HERRERA-7 AMB Questionnaire HERRERA-7 Date HERRERA - 7 assessed: 09/15/23 Source: Developed by Drs. Edwin Montez, Sapna Saucedo, Jonatan Aparicio and colleagues, with an educational harley from [employer]. Physical exam (Primary Care) Vital Signs: Last Vital Signs Temp 97.2 F 11/03/24 11:31 Pulse 72 11/03/24 11:31 Resp 18 11/03/24 11:31 BP 116/72 11/03/24 11:31 Pulse Ox 97 11/03/24 11:31 Oxygen Delivery Method Room Air 11/03/24 11:31 BMI result Body Mass Index 31.1 Tobacco/Smoking Status: Tobacco use Status Tobacco use date assessed 11/03/24 11/03/24 11:36 Patient Tobacco Use Status Current someday Tobacco 11/03/24 11:36 Tobacco use type Cigarette 11/03/24 11:36 e-Cigarette/Vaping Use Never Used 11/03/24 11:36 Thrive Assessment: Date of Thrive Assessment Date Thrive assessed 05/08/24 11/03/24 11:36 Currently or been in a relationship where the following occur: I choose not to answer Coding Level of Care Code Est Pt Prev Care 40-64y(47121) Diagnoses Physical exam Z00.00 Episode of recurrent major depressive disorder, unspecified depression episode severity F33.9 Major depression episode severity: unspecified Polysubstance abuse F19.10 Assessment & Plan Assessment & Plan (1) Physical exam: Code(s): Z00.00 - Encounter for general adult medical examination without abnormal findings (2) MDD (major depressive disorder), recurrent episode: Code(s): F33.9 - Major depressive disorder, recurrent, unspecified Category: Medical Qualifiers: Major depression episode severity: unspecified Qualified Code(s): F33.9 - Major depressive disorder, recurrent, unspecified (3) Polysubstance abuse: Code(s): F19.10 - Other psychoactive substance abuse, uncomplicated Category: Medical Plan CPE Interval history reviewed preventive measures for age discussed Due mammo-ordered. stress importance Due colon cancer screening. cologuard ordered [facility]IT[facility] Labs pending. Add A1C. Back pain. zanaflex sent Orders: Orders Hemoglobin A1c Today R73.01 - Impaired fasting glucose MM tomosynthesis screening BI Today Z12.31 - Encounter for screening mammogram for malignant neoplasm of breast Referrals Cologuard Test Z12.11 - Encounter for screening for malignant neoplasm of colon, Z12.12 - Encounter for screening for malignant neoplasm of rectum Medications: Refilled tizanidine 4 mg PO TID PRN 45 tabs 1RF for muscle spasm 15 days
[2024-11-03 11:31] VITALS: BP 116/72; PULSE 72; RESP 18; TEMP 36.2; O2SAT 97; BMI 31.1
== END 2024-11-03 11:53 | disposition home or self-care (01) ==
LOC: HO.HMCFM 11:23
PROVIDERS: PCP Family Medicine; Visit Provider Internal Medicine
DX: Z00.00 Encounter for general adult medical examination without abnormal findings (principal); F33.9 Major depressive disorder, recurrent, unspecified; F19.10 Other psychoactive substance abuse, uncomplicated

== ENCOUNTER 2024-11-09 14:04 | Outpatient (REF) | payer OTHER, MEDICAID, SELFPAY ==
[2024-11-09 14:19] LABS: MANUAL DIFF FLAG NO
[2024-11-09 14:39] LABS: Hematocrit 42.2 % (37.0-47.0); Hemoglobin 14.6 g/dl (12.0-16.0); Imm Gran Abs Auto 0.03 X10*3/uL (0.00-0.03); Imm Gran Pct Auto 0.3 % (0.0-0.4); Lymphocytes Absolute Auto 2.3 X10*3/uL (1.2-4.9); Mean Corpuscular HGB Conc 34.6 g/dl (31.0-35.0); Mean Corpuscular Hemoglobin 33.0 pg (27.0-33.0); Mean Corpuscular Volume 95.3 fL (80.0-98.0); NRBC Abs Auto 0.000 X10*3/uL (0.0-0.012); NRBC Pct Auto 0.0 /100WBC (0.0-0.2); Platelet Count 241 X10*3/uL (160-400); Red Blood Count 4.43 X10*6/uL (4.20-5.50); White Blood Count 9.5 X10*3/uL (4.8-10.8)
[2024-11-09 14:43] LABS: Appearance Urine Cloudy; Glucose Urine UA Negative (Negative); PH 7.0 (5.0-9.0); Specific Gravity - Urine 1.020 (1.005-1.025); UMIC TRIGGER UA YES
[2024-11-09 14:46] LABS: Hemoglobin A1C 136.1957 umol/L; Total Hemoglobin (HGBA1C) 3834.3619 umol/L
[2024-11-09 15:28] LABS: Microalbum/Creatinine Ratio Ur 14.6 ug/mg cr (<30)
[2024-11-09 15:31] LABS: Alanine Aminotransferase 18 U/L (0-31); Albumin Level 4.7 g/dL (3.5-5.0); Alkaline Phosphatase 76 U/L (39-117); Anion Gap 12 (12-20); Aspartate Amino Transferase 23 U/L (5-31); Blood Urea Nitrogen 8 mg/dL (9-16); Calcium 9.5 mg/dL (8.4-10.2); Carbon Dioxide 25 mmol/L (22-29); Chloride 109 mmol/L (96-108); Cholesterol 148 mg/dL (<200); Estimated Glomerular Filt Rate > 60; HDL Cholesterol 50 mg/dL (>40); Potassium 3.6 mmol/L (3.3-5.1); Sodium 142 mmol/L (135-145); Total Protein 7.2 g/dL (6.5-8.0); Triglycerides 80 mg/dL (<150)
--- OUTSIDE RECORDS SUMMARY | 2024-11-09 16:04 | XMS_ITS | Clinical Summary ---
Author Organization 175 [facility] Address [address] [place] [address] Phone Care Team Providers Care Combatant Diver Qualified Name Role Phone Vivek Brandon MD Primary Care Provider Allergies Active Allergy Reactions Criticality Noted Date Comments Prednisone 03/16/2024 Encounters Date Type Department Care Team Description 09/14/2024 1:00 PM EDT Office Visit Orthopedic [facility] [address] [phone] Gonzalo Siegel DPM Dermatophytosis of [...] 03/16/2024 3:23 PM EST Plan of Treatment Upcoming Encounters Date Type Department Care Team ([facility] st Contact Info) Description 01/15/2025 1:00 PM EST Office Visit Orthopedic Surgery [facility] [address] [phone] Gonzalo Siegel DPM [address] [phone] Health Maintenance Due Date Last Done Comments Breast Cancer Screening 1974 Hepatitis B Vaccines (1 of 3 - 19+ 3-dose series) 1993 Cervical Cancer Screening: P ap Smear 1995 Colorectal Cancer Screening: Colonoscopy 11/30/2023 HIV Screening 11/30/2023 Hepatitis C Screening 11/30/2023 Medicare Annual Wellness Visit 11/30/2023 Social Influencers of Health Screening 11/30/2023 Depression Screening 02/23/2024 Zoster Vaccines (1 of 2) 2024 COVID-19 Vaccine (4 - 2024-2 6 season) 2024 01/23/2022, 10/15/2020, 09/16/2020 Influenza Vaccine (#1) 2024 DTaP,Tdap,and Td Vaccines (2 - Td or Tdap) 09/14/2033 09/15/2023 Pneumococcal Vaccine: 50+ Years Completed 01/23/2022, 11/19/2016 HIB Vaccines Aged Out No longer eligi [...] age to complete this topic Meningococcal B Vaccine Aged Out No l onger eligible based on patient's age to complete this topic RSV Immunization Patients Under 20 months Aged Out No longer eligible b ased on patient's age to complete this topic Varicella Vaccines Aged Out No longer eligible based on patient's age to complete this topic Insurance MEDICAID - [place] [facility] MEDICARE ADVANTAGE on file Care Teams Combatant Diver Qualified Relationship Specialty Start Date End Date Vivek Brandon MD [address] [place] [address] Dr Tam [place] PCP - General 11/19/23
== END 2024-11-09 14:05 | disposition home or self-care (01) ==
LOC: HO.LAB 14:04
PROVIDERS: PCP Family Medicine; Visit Provider Internal Medicine
DX: Z00.00 Encounter for general adult medical examination without abnormal findings (principal); I10 Essential (primary) hypertension; E78.5 Hyperlipidemia, unspecified; E55.9 Vitamin D deficiency, unspecified; R73.01 Impaired fasting glucose
CPT/HCPCS: 36415; 80053; 80061; 81001; 82043; 82306; 82570; 83036; 84443; 85025

== ENCOUNTER → 2024-12-20 13:00 | Outpatient (BNV) | payer OTHER, MEDICAID, SELFPAY | PROVIDERS: PCP Family Medicine; Visit Provider Radiology Body Imaging | DX: Z12.31 Encounter for screening mammogram for malignant neoplasm of breast (principal) | CPT/HCPCS: 77063; 77067 ==

== ENCOUNTER 2024-12-20 13:03 | Outpatient (REF) | payer OTHER, MEDICAID, SELFPAY ==
--- OUTSIDE RECORDS SUMMARY | 2024-12-20 16:33 | XMS_ITS | Clinical Summary ---
Author Organization 175 [facility] Address [address] [place] [address] Phone Care Team Providers Care Dividing Machine Operator Helper Name Role Phone Vivek Brandon MD Primary Care Provider Allergies Active Allergy Reactions Criticality Noted Date Comments Prednisone 03/16/2024 Social History Tobacco Use Types Packs/Day Years [...] Upcoming Encounters Date Type Department Care Team (Late st Contact Info) Description 01/15/2025 1:00 PM EST Office Visit Orthopedic Surgery [facility] [address] [phone] Gonzalo Siegel, BENNETT [address] [place] [phone] Health Maintenance Due Date Last Done Comments Breast Cancer Screening 1974 Colorectal Cancer Screening: Colonoscopy 1974 Hepatitis B Vaccines (1 of 3 - 19+ 3-dose series) 1993 Cervical Cancer Screening: P ap Smear 1995 HIV Screening 11/30/2023 Hepatitis C Screening 11/30/2023 Medicare Annual Wellness Visit 11/30/2023 Social Influencers of Health Screening 11/30/2023 Depression Screening 02/23/2024 Zoster Vaccines (1 of 2) 2024 COVID-19 Vaccine (4 - 2024-2 6 season) 2024 01/23/2022, 10/15/2020, 09/16/2020 Influenza Vaccine (#1) 2024 DTaP,Tdap,and Td Vaccines (2 - Td or Tdap) 09/14/2033 09/15/2023 RSV Immunization Adult Patients (1 - 1-dose 75+ series) 2049 Pneumococcal Vaccine: 50+ Years Completed 01/23/2022, 11/19/2016 [...] to complete this topic Insurance MEDICAID - [place] [facility] MEDICARE ADVANTAGE on file Care Teams Dividing Machine Operator Helper Relationship Specialty Start Date End Date Vivek Brandon MD [address] [place] [address] Dr Tam [place] PCP - General 11/19/23
== END 2024-12-20 13:04 | disposition home or self-care (01) ==
LOC: HO.MAMMO 13:03
PROVIDERS: PCP Family Medicine; Visit Provider Internal Medicine
DX: Z12.31 Encounter for screening mammogram for malignant neoplasm of breast (principal)
CPT/HCPCS: 77063; 77067